=== PATIENT | male | born 1955 | race Two or more races ===

== ENCOUNTER 2022-01-23 08:07 | Inpatient (IN) | payer OTHER ==
[~2022-01-23] VITALS: Ht 177.8 cm; Wt 83.7 kg
[~2022-01-23 08:07] MED LIST: MELO1TAB56 PO
[2022-01-23] MEDS ORDERED: GABAPENTIN 100 MG CAP PO ONE (08:45)
[2022-01-23] MEDS ORDERED: CELECOXIB 100 MG CAP PO ONE (08:45)
[2022-01-23] MEDS ORDERED: traMADol HCL 50 MG TAB PO ONE (08:45)
[2022-01-23] MEDS: VANCOMYCIN HCL 1000 MG VL ONE ×2 (09:31→13:30)
[2022-01-23] MEDS: THROMBIN (BOVINE) 5000 UNIT SOL VIAL ONE ×2 (09:32→10:28)
[2022-01-23] MEDS: BUPIVACAINE W/ EPINEPH 0.5% INJ 50ML MDV IJ ONE ×2 (09:32→13:20)
[2022-01-23] MEDS ORDERED: MINERAL OIL TOPICAL 10ml TOP ONE (09:32)
[2022-01-23] MEDS ORDERED: ceFAZolin 1GM/50ML 100 ML IV ONE (09:45)
[2022-01-23] MEDS ORDERED: fentaNYL CITRATE 100 MCG/2 ML VL ONE (09:53)
[2022-01-23] MEDS ORDERED: HYDROmorphone HCL 2 MG/ML VL/or syr ONE ×2 (09:53→14:10)
[2022-01-23] MEDS: ceFAZolin 1GM/50ML 50 ML IV SCH ×3 (09:53→22:11)
[2022-01-23] MEDS ORDERED: fentaNYL CITRATE 10 ML ONE (09:54)
[2022-01-23] MEDS ORDERED: MIDAZOLAM HCL 2MG/2ML 2ml VIAL (1mg/ml) ONE (09:54)
[2022-01-23] MEDS ORDERED: DexAMETHasone SOD PHOS 10MG/1ML VIAL INJ ONE (09:57)
[2022-01-23] MEDS ORDERED: MIDAZOLAM HCL 2MG/2ML 2ml VIAL (1mg/ml) IV PRN (10:30)
[2022-01-23] MEDS ORDERED: fentaNYL CITRATE 100 MCG/2 ML VL IV PRN (10:30)
[2022-01-23] MEDS ORDERED: ONDANSETRON HCL 4 MG/2 ML VIAL IV PRN ×3 (10:30→14:30)
[2022-01-23] MEDS ORDERED: MORPHINE SULFATE 4 MG/ML SYR/VIAL IV PRN ×2 (10:30→14:30)
[2022-01-23] MEDS ORDERED: ePHEDrine SULFATE 50 MG/ML AMP IV PRN (10:30)
[2022-01-23] MEDS ORDERED: hydrALAZINE HCL 20 MG/ML VL IV PRN (10:30)
[2022-01-23] MEDS ORDERED: LABETALOL HCL 5 MG/ML 4ML SYRINGE IV PRN (10:30)
[2022-01-23] MEDS ORDERED: TRANEXAMIC ACID 10 ML ONE (11:16)
[2022-01-23] MEDS ORDERED: PROPOFOL 10 MG/ML 20 ML IV ONE (12:13)
[2022-01-23] MEDS ORDERED: ROCURONIUM 10MG/ML 10ML VIAL IV ONE (12:51)
[2022-01-23] MEDS ORDERED: SUGAMMADEX 200mg/2ml Vial (100MG/ML) IV ONE (13:02)
[2022-01-23] MEDS ORDERED: NITROGLYCERIN 0.4 MG SL TAB SL PRN ×2 (14:00)
[2022-01-23] MEDS: LACTATED RINGER'S 1,000 ML IV SCH (14:00)
[2022-01-23] MEDS ORDERED: HYDROmorphone HCL 2 MG/ML VL/or syr IV PRN (14:00)
[2022-01-23] MEDS ORDERED: oxyCODONE HCL 5MG TAB PO PRN (14:00)
[2022-01-23] MEDS ORDERED: MORPHINE SULFATE INJ 2 MG/ml SYRG IV PRN ×3 (14:00→14:30)
[2022-01-23] MEDS ORDERED: OXYCODONE W/ ACETAMINOPHEN 5/325MG TABLET PO PRN (14:00)
[2022-01-23] MEDS: HYDROmorphone HCL 2 MG/ML VL/or syr IV PRN ×2 (14:12→14:22)
[2022-01-23] MEDS ORDERED: HYDROcodone-ACET 5/325MG TAB PO PRN (14:30)
[2022-01-23] MEDS ORDERED: ACETAMINOPHEN 325 MG TAB PO PRN (14:30)
[2022-01-23] MEDS ORDERED: LACTULOSE 20Gm/30ML SOLN PO PRN (14:30)
[2022-01-23] MEDS ORDERED: diphenhdrAMINE HCL 50 MG/1 ML VL IM ONE (14:30)
[2022-01-23] MEDS ORDERED: diphenhdrAMINE HCL 50 MG/1 ML VL IV ONE (14:30)
[2022-01-23] MEDS ORDERED: diphenhdrAMINE HCL 50 MG/1 ML VL ONE (14:34)
[2022-01-23 22:00] VITALS: BP 127/82
[2022-01-23] MEDS: DOCUSATE SOD 100 MG CAP PO SCH (22:12)
[2022-01-23] MEDS: SENNA 8.6 MG TAB PO SCH (22:12)
[2022-01-24] MEDS: LACTATED RINGER'S 1,000 ML IV SCH (00:43)
[2022-01-24 05:00] VITALS: BP 124/70
[2022-01-24] MEDS: ceFAZolin 1GM/50ML 50 ML IV SCH (05:27)
[2022-01-24 06:16] LABS: Basophils # (auto) 0 10 ^3/uL (0-0.2); Basophils % (auto) 0.3 % (0.0-2.0); Eosinophils # (auto) 0 10 ^3/uL (0-0.8); Eosinophils % (auto) 0.1 % (0.0-7.0); Hemoglobin 12.3 g/dL (13.5-17.5); Lymphocytes # (auto) 0.9 10 ^3/uL (0.4-5.4); Lymphocytes % (auto) 13.2 % (10.0-50.0); Mean Corpuscular Hemoglobin 32.5 pg (28.0-32.0); Mean Corpuscular Hgb Conc. 34.3 g/dL (32.0-36.0); Mean Corpuscular Volume 94.9 fL (80.0-100.0); Monocytes # (auto) 0.5 10 ^3/uL (0-1.3); Monocytes % (auto) 7.8 % (0.0-12.0); Neutrophils # (auto) 5.5 10 ^3/uL (1.6-8.6); Neutrophils % (auto) 78.6 % (37.0-80.0); Red Blood Cells 3.79 10^6/uL (4.5-5.90); Red Cell Distribution Width 12.5 % (11.8-14.3)
[2022-01-24 06:31] LABS: INR 1.03 (0.9-1.15)
[2022-01-24 06:34] LABS: BUN/Creatinine Ratio 19.4; Calcium 8.4 mg/dL (8.5-10.1); Potassium 4.2 mmol/L (3.5-5.1)
[2022-01-24 08:38] VITALS: BP 134/71
[2022-01-24] MEDS: DOCUSATE SOD 100 MG CAP PO SCH (08:49)
[2022-01-24] MEDS: SENNA 8.6 MG TAB PO SCH (08:49)
[2022-01-24] MEDS ORDERED: POLYETHYLENE GLYCOL 17 GM PWDR PO SCH (10:00)
[2022-01-24] MEDS ORDERED: FAMOTIDINE 20 MG TAB PO SCH (10:00)
[2022-01-24 13:00] VITALS: BP 111/79
[2022-01-24] MEDS ORDERED: HEPARIN SODIUM (PORCINE) 5000 UNITS/ML 1ML VIAL SC SCH (14:00)
== END 2022-01-24 16:05 | disposition home or self-care (01) | DRG 455 ==
LOC: SUR 08:07 → OVERFLOW 14:00 → WEST WING 16:45
PROVIDERS: ADMIT Physician Assistant; ATTEND Internal Medicine
PROC: 0SG00JJ Fusion of Lumbar Vertebral Joint with Synthetic Substitute, Posterior Approach, Anterior Column, Open Approach (ICD-10-PCS; 2022-01-23)
PROC: 01NB0ZZ Release Lumbar Nerve, Open Approach (ICD-10-PCS; 2022-01-23)
PROC: 4A11X4G Monitoring of Peripheral Nervous Electrical Activity, Intraoperative, External Approach (ICD-10-PCS; 2022-01-23)
PROC: 0SG0071 Fusion of Lumbar Vertebral Joint with Autologous Tissue Substitute, Posterior Approach, Posterior Column, Open Approach (ICD-10-PCS; principal; 2022-01-23 09:56)
DX: M48.062 Spinal stenosis, lumbar region with neurogenic claudication (principal); Z20.822 Contact with and (suspected) exposure to COVID-19
CPT/HCPCS: 36415; 72100; 76000; 80048; 85025; 85610; 86850; 86900; 86901; 97163; G0378; J0690; J1100; J2250; J2704

== ENCOUNTER 2023-09-21 07:36 | Inpatient (IN) | payer OTHER ==
[~2023-09-21] VITALS: Ht 177.8 cm; Wt 84.2 kg
[2023-09-21] VITALS (13 sets, daily range): BP systolic 106–134; BP diastolic 67–87; PULSE 69–91; RESP 14–20; TEMP 97.9; O2SAT 92–100
[~2023-09-21 07:36] MED LIST changes: -MELO1TAB56 PO; +NAPR-746 PO
[2023-09-21] MEDS ORDERED: CELECOXIB 100 MG CAP PO ONE (09:00)
[2023-09-21] MEDS ORDERED: ACETAMINOPHEN IV 1000 MG/100ML (10MG/ML) IV ONE (09:00)
[2023-09-21] MEDS ORDERED: PREGABALIN CAPSULE 75 MG CAP PO ONE (09:00)
[2023-09-21] MEDS ORDERED: CELECOXIB 100 MG CAP ONE (09:20)
[2023-09-21] MEDS ORDERED: PREGABALIN CAPSULE 75 MG CAP ONE (09:21)
[2023-09-21] MEDS ORDERED: ceFAZolin 2 GM/D5W100ml 100 ML IV ONE (09:21)
[2023-09-21] MEDS ORDERED: ACETAMINOPHEN IV 100 ML IV ONE (09:26)
[2023-09-21] MEDS ORDERED: TRANEXAMIC ACID 20 ML ONE (10:16)
[2023-09-21] MEDS ORDERED: BUPIVACAINE 0.25% INJ 50ML VIAL ONE (10:16)
[2023-09-21] MEDS ORDERED: KETOROLAC TROMETH 30 MG/ML 1ML VIAL ONE (10:18)
[2023-09-21] MEDS ORDERED: VANCOMYCIN HCL 1000 MG VL ONE (10:18)
[2023-09-21] MEDS ORDERED: TETRACAINE 1% INJ 2 ML VIAL IJ ONE (10:30)
[2023-09-21] MEDS ORDERED: fentaNYL CITRATE 100 MCG/2 ML VL ONE (10:33)
[2023-09-21] MEDS ORDERED: MIDAZOLAM HCL 2MG/2ML 2ml VIAL (1mg/ml) ONE (10:33)
[2023-09-21] MEDS ORDERED: DexAMETHasone SOD PHOS 10MG/1ML VIAL INJ ONE (10:34)
[2023-09-21] MEDS ORDERED: PROPOFOL 10 MG/ML 20 ML IV ONE (10:34)
[2023-09-21] MEDS ORDERED: MORPHINE SULF PF 5 MG/10 ML VIAL ONE (10:35)
[2023-09-21] MEDS ORDERED: DexAMETHasone SOD PHOS 4 MG/1ML SDV INJ ONE (10:52)
[2023-09-21] MEDS ORDERED: SODIUM CHLORIDE LOCK 10 ML ONE (10:53)
[2023-09-21] MEDS ORDERED: HYDROmorphone HCL 2 MG/ML VL/or syr IV PRN ×2 (11:15→11:30)
[2023-09-21] MEDS ORDERED: DexAMETHasone SOD PHOS 10MG/1ML VIAL INJ IV PRN (11:15)
[2023-09-21] MEDS ORDERED: diphenhdrAMINE HCL 50 MG/1 ML VL IV PRN (11:15)
[2023-09-21] MEDS ORDERED: NALOXONE HCL 0.4 MG/ML VIAL IV PRN (11:15)
[2023-09-21] MEDS ORDERED: LABETALOL HCL 5 MG/ML 4ML SYRINGE IV PRN (11:15)
[2023-09-21] MEDS ORDERED: ePHEDrine SULFATE 50 MG/ML AMP IV PRN (11:15)
[2023-09-21] MEDS ORDERED: MIDAZOLAM HCL 2MG/2ML 2ml VIAL (1mg/ml) IV PRN (11:15)
[2023-09-21] MEDS ORDERED: ONDANSETRON HCL 4 MG/2 ML VIAL IV PRN (11:15)
[2023-09-21] MEDS ORDERED: ceFAZolin 1GM/50ML 50 ML IV SCH (11:30)
[2023-09-21] MEDS ORDERED: MORPHINE SULFATE INJ 2 MG/ml SYRG IV PRN (11:30)
[2023-09-21] MEDS ORDERED: NITROGLYCERIN 0.4 MG SL TAB SL PRN (11:30)
[2023-09-21] MEDS: SODIUM CHLOR 0.9% PF (SALINE LOCK) 10ML VIAL/SYR IV SCH ×2 (14:00→21:39)
[2023-09-21] MEDS: LACTATED RINGER'S 1,000 ML IV SCH ×2 (15:40→21:30)
[2023-09-21] MEDS: ceFAZolin 1GM/50ML 50 ML IV SCH ×2 (17:00→21:39)
[2023-09-22] VITALS (23 sets, daily range): BP systolic 92–137; BP diastolic 62–90; PULSE 61–97; RESP 16–24; TEMP 97.3–99.7; O2SAT 91–97
[2023-09-22] MEDS: ceFAZolin 1GM/50ML 50 ML IV SCH (03:40)
[2023-09-22] MEDS: SODIUM CHLOR 0.9% PF (SALINE LOCK) 10ML VIAL/SYR IV SCH ×3 (05:01→22:13)
[2023-09-22 06:14] LABS: Basophils # (auto) 0 10 ^3/uL (0-0.2); Eosinophils # (auto) 0 10 ^3/uL (0-0.8); Hematocrit 38.6 % (41.0-53.0); Hemoglobin 12.9 g/dL (13.5-17.5); Lymphocytes # (auto) 0.5 10 ^3/uL (0.4-5.4); Lymphocytes % (auto) 5.5 % (10.0-50.0); Mean Corpuscular Hemoglobin 32.3 pg (28.0-32.0); Mean Corpuscular Hgb Conc. 33.4 g/dL (32.0-36.0); Mean Corpuscular Volume 96.9 fL (80.0-100.0); Monocytes # (auto) 0.7 10 ^3/uL (0-1.3); Monocytes % (auto) 7.5 % (0.0-12.0); Neutrophils # (auto) 7.5 10 ^3/uL (1.6-8.6); Red Blood Cells 3.98 10^6/uL (4.5-5.90); White Blood Cell 8.7 10^3/uL (4.4-10.8)
[2023-09-22] MEDS: LACTATED RINGER'S 1,000 ML IV SCH ×2 (06:24→16:37)
[2023-09-22 06:30] LABS: Calcium 8.8 mg/dL (8.5-10.1); Chloride 105 mmol/L (98-107); Potassium 4.7 mmol/L (3.5-5.1); Sodium 136 mmol/L (136-145)
[2023-09-22 06:31] LABS: Anion Gap 5 (5-15); Carbon Dioxide 26 mmol/L (20-30)
[2023-09-22 06:36] LABS: BUN/Creatinine Ratio 17.3 (10.0-20.0); Blood Urea Nitrogen 14 mg/dL (9-23); Glucose 122 mg/dL (74-106)
[2023-09-22] MEDS: ENOXAPARIN SOD 40 MG/0.4 ML SYRINGE SC SCH (08:40)
[2023-09-22] MEDS: ACETAMINOPHEN 325 MG TAB PO PRN (15:13)
[2023-09-22] MEDS: chlordiazePOXIDE HCL 5 MG CAP PO PRN (15:44)
[2023-09-22] MEDS: OXYCODONE W/ ACETAMINOPHEN 5/325MG TABLET PO PRN (18:15)
[2023-09-23] MEDS: OXYCODONE W/ ACETAMINOPHEN 5/325MG TABLET PO PRN ×4 (01:07→14:26)
[2023-09-23] MEDS: LACTATED RINGER'S 1,000 ML IV SCH ×2 (03:30→13:30)
[2023-09-23 05:00] VITALS: BP 114/87; PULSE 78; RESP 18; TEMP 98.1; O2SAT 96
[2023-09-23 08:00] VITALS: PULSE 78; RESP 20; O2SAT 94
[2023-09-23] MEDS: ENOXAPARIN SOD 40 MG/0.4 ML SYRINGE SC SCH (08:52)
[2023-09-23] MEDS: ACETAMINOPHEN 325 MG TAB PO PRN (09:05)
[2023-09-23] MEDS: chlordiazePOXIDE HCL 5 MG CAP PO PRN (10:35)
[2023-09-23 13:00] VITALS: BP 128/81; PULSE 82; RESP 18; TEMP 98.3; O2SAT 95
[2023-09-23 15:23] VITALS: BP 128/81; PULSE 82; RESP 18; TEMP 36.8; O2SAT 95
[2023-09-23 17:19] VITALS: BP 99/64; PULSE 81; RESP 17; TEMP 98.8; O2SAT 89
== END 2023-09-23 16:15 | disposition home health service (06) | DRG 470 ==
LOC: SUR 07:36 → OVERFLOW 11:33 → TELE-EAST 16:09
PROVIDERS: ADMIT Orthopaedic Surgery Adult Reconstructive Orthopaedic Surgery; ATTEND Orthopaedic Surgery Adult Reconstructive Orthopaedic Surgery
PROC: 0SRD0J9 Replacement of Left Knee Joint with Synthetic Substitute, Cemented, Open Approach (ICD-10-PCS; principal; 2023-09-21 10:44)
DX: M17.12 Unilateral primary osteoarthritis, left knee (principal); Z83.3 Family history of diabetes mellitus; Z82.49 Family history of ischemic heart disease and other diseases of the circulatory system
CPT/HCPCS: 36415; 73562; 80048; 85025; 86850; 86900; 86901; 97110; 97116; 97163; 97530; G0378; J0131; J1100; J1885; J2250; J2704; J3490

== ENCOUNTER 2024-10-07 21:31 | Emergency (ER) | payer OTHER ==
[~2024-10-07] VITALS: Ht 177.8 cm
--- NOTE | 2024-10-07 21:47 | ED.PDOC ---
Altered Mental Status HPI Comments 69 y.o male presents to the ED via EMS s/p syncopal episode earlier today at home. EMS reports patient was watching TV on his couch, began feeling dizzy and states he saw white spots. Patient reports he got himself up to go sleep and as he ambulating, he leaned against the kitchen counter and lost consciousness. Wi fe was able to catch him and assist him to the floor and no head injury was reported. Per , patient has a history of anxiety and states he was anxious today as he decided to get a second knee surgery. Patient also mentions taking an edible, usually takes them for anxiety but this time did not realize he had double doze equally 100mg. He denies any chest pain, SOB, nausea, vomiting, diarrhea, fever, or chills. Patient was tearful and stated he believes the event is completely related to anxiety issues. Vital signs were stable on arrival. Chief Complaint: Syncope Time Seen by MD: 21:33 Reviewed Notes: Nurses Notes, Academic Director Notes, Medications, Allergies Allergies: Coded Allergies: NO KNOWN ALLERGIES (Unverified , 01/21/22) Home Meds No Active Prescriptions or Reported Meds Information Source: Patient, Emergency Med Personnel Mode of Arrival: EMS Severity: Moderate Timing: Hours Duration: Since onset Prehospital treatment: 12 Lead EKG, Rags Laborer Quality: Decreased Alertness Recent: None History of: None Past Medical History PAST MEDICAL HISTORY: Anxiety, Cancer Surgical History: Denies all surgeries Surgical History (Other): Knee Family History Family History: Reviewed,noncontributory to illness, No family hx of Cancer, No family hx of DM, No family hx of Heart dee, No family hx of HTN, No family hx ofKidney dee, No family hx of Liver dee, No family hx of Lung dee, No family hx of Stroke Social History Smoker: Non-Smoker Alcohol: Denies ETOH Use Drugs: Denies Drug Use Lives In: Home Constitutional: denies: chills, diaphoresis, fatigue, fever, malaise, sweats, weakness, others EENTM: denies: blurred vision, double vision, ear bleeding, ear discharge, ear drainage, ear pain, ear ringing, eye pain, eye redness, hearing loss, mouth pain, mouth swelling, nasal discharge, nose bleeding, nose congestion, nose pain, photophobia, tearing, throat pain, throat swelling, voice changes, others Respiratory: denies: cough, hemoptysis, orthopnea, SOB at rest, shortness of breath, SOB with excertion, stridor, wheezing, others Cardiovascular: reports: syncope; denies: chest pain, dizzy spells, diaphoresis, Dyspnea on exertion, edema, irregular heart beat, left arm pain, lightheadedness, palpitations, PND, others Gastrointestinal: denies: abdomen distended, abdominal pain, blood streaked bowels, constipated, diarrhea, dysphagia, difficulty swallowing, hematemesis, melena, nausea, poor appetite, poor fluid intake, rectal bleeding, rectal pain, vomiting, others Genitourinary: denies: burning, dysuria, flank pain, frequency, hematuria, incontinence, penile discharge, penile sore, pain, testicle pain, testicle sw elling, urgency, others Neurological: denies: dizziness, fainting, headache, left sided numbness, left sided weakness, numbness, paresthesia, pre-existing deficit, right sided numbness, right sided weakness, seizure, speech problems, tingling, tremors, weakness, others Musculoskeletal: denies: back pain, gout, joint pain, joint swelling, muscle pain, muscle stiffness, neck pain, others Integumetry: denies: bruises, change in color, change in hair/nails, dryness, laceration, lesions, lumps, rash, wounds, others Allergic/Immunocompromised: denies: Difficulty Healing, Frequent Infections, Hives, Itching, others Hematologic/Lymphatic: denies: anemia, blood clots, easy bleeding, easy bruising, swollen glands, others Endocrine: denies: excessive hunger, excessive sweating, excessive thirst, excessive urination, flushing, intolerance to cold, intolerance to heat, unexplained weight gain, unexplained weight loss, others Psychiatric: reports: anxiety; denies: bipolar disorder, depression, hopeless, panic disorder, schizophrenia, sleepless, suicidal, others All Other Systems: Reviewed and Negative Physical Exam General Appearance: Moderate Distress (anxious appearing . Patient was tearful at time of evaluation due to anxiety concerns.), Normal HEENT: Normal ENT Inspection, Pharynx Normal, TMs Normal Neck: Full Range of Motion, Non-Tender, Normal, Normal Inspection Respiratory: Chest Non-Tender, Lungs Clear, No Accessory Muscle Use, No Respiratory Distress, Normal Breath Sounds Cardiovascular: No Edema, No JVD, No Murmur, No Gallop, Normal Peripheral Pulses, Regular Rate/Rhythm Breast Exam: Deferred Gastrointestinal: No Organomegaly, Non Tender, No Pulsatile Mass, Normal Bowel Sounds, Soft Genitalia: Deferred Pelvic: Deferred Rectal: Deferred Extremities: No calf tenderness, Normal capillary refill, Normal inspection, Normal range of motion, Non-tender, No pedal edema Musculoskeletal : Apperance: Normal Neurologic: Alert, No Motor Deficits, No Sensory Deficits, Other (Tearful anxiety) Cerebellar Function: Normal Reflexes: Normal Skin: Dry, Normal Color, Warm Lymphatic: No Adenopathy Was a procedure done? Was a procedure done?: No Differential Diagnosis (ALOC) Differential Diagnosis: Dehydration, Other (Sepsis, electrolyte abnormality, acute coronary syndrome, anxiety, vasovagal) Other Differential Diagnosis Anxiety X-Ray, Labs, Meds, VS Vital Signs Date Time Temp Pulse Resp B/P (MAP) Pulse Ox O2 Delivery O2 Flow Rate FiO2 10/07/24 22:44 98.5 69 17 125/51 (75) 95 98.5 10/07/24 22:44 69 17 95 Room Air 10/07/24 21:36 82 10/07/24 21:31 98.3 74 17 123/76 (92) 98 Lab Test 10/07/24 21:46 Range/Units White Blood Count 7.1 4.4-10.8 10^3/uL Red Blood Count 4.57 4.5-5.90 10^6/uL Hemoglobin 14.6 13.5-17.5 g/dL Hematocrit 43.5 41.0-53.0 % Mean Corpuscular Volume 95.3 80.0-100.0 fL Mean Corpuscular Hemoglobin 32.0 28.0-32.0 pg Mean Corpuscular Hemoglobin Concent 33.6 32.0-36.0 g/dL Red Cell Distribution Width 12.7 11.8-14.3 % Platelet Count 202 140-450 10^3/uL Mean Platelet Volume 7.9 6.9-10.8 fL Neutrophils (%) (Auto) 75.8 37.0-80.0 % Lymphocytes (%) (Auto) 11.9 10.0-50.0 % Monocytes (%) (Auto) 10.7 0.0-12.0 % Eosinophils (%) (Auto) 1.2 0.0-7.0 % Basophils (%) (Auto) 0.4 0.0-2.0 % Neutrophils # (Auto) 5.4 1.6-8.6 10 ^3/uL Lymphocytes # (Auto) 0.8 0.4-5.4 10 ^3/uL Monocytes # (Auto) 0.8 0-1.3 10 ^3/uL Eosinophils # (Auto) 0.1 0-0.8 10 ^3/uL Basophils # (Auto) 0 0-0.2 10 ^3/uL Nucleated Red Blood Cells 0.1 % Sodium Level 137 136-145 mmol/L Potassium Level 4.7 3.5-5.1 mmol/L Chloride Level 103 98-107 mmol/L Carbon Dioxide Level 27 20-31 mmol/L Anion Gap 7 5-15 Blood Urea Nitrogen 26 H 9-23 mg/dL Creatinine 1.30 0.700-1.30 mg/dL Glomerular Filtration Rate Calc 60 >90 mL/min BUN/Creatinine Ratio 20.0 10.0-20.0 Serum Glucose 108 H 74-106 mg/dL Calcium Level 9.1 8.7-10.4 mg/dL Troponin I High Sensitivity 8 </=54 ng/L X-Ray, Labs, Meds, VS Comment All studies performed the ED were evaluated by me personally. Laboratories studies were unremarkable for any systemic concerns. EKG showed a sinus rhythm with a rate of 82. DE interval of 151 and QT interval of 383. Normal EKG. Patient responded well to medication dispensed. Patient states he does not usually take medication for anxiety. Advised patient that he should talk to his primary care provider for information related to medication management of what appears to be significant anxiety concerns. Patient rosebud with a short course of Xanax to aid him while waiting to consult his doctor. Time of 1ST Reevaluation: 22:58 Reevaluation 1ST: Improved Consultation: PCP, Psychiatry Patient Education/Counseling: Diagnosis, Treatment, Prognosis Family Education/Counseling: Diagnosis, Treatment, No Family Present Departure 1 Departure Time of Disposition: 22:58 Impression: Primary Impression: Anxiety Additional Impression: Fainting spell Disposition: 01 HOME / SELF CARE / HOMELESS Condition: Stable Additional Instructions: Advise utilizing medication as needed and additionally, patient should follow up with his primary care provider for discussions related to medication assistance with his significant anxiety concerns. e-Prescriptions Alprazolam (Xanax) 0.5 Mg Tb 1 TAB PO TID, #15 TAB Prov: ABUNDIO RODRIGUEZ PAC 10/07/24 Discharged With: Self, Spouse Critical Care Note Critical Care Time?: No Stability Stability form required: No I personally scribed for ABUNDIO RODRIGUEZ PAC ([email or web address]) on 10/07/24 at 21:47. Elect ronically submitted by Radha Yoon ([facility]). ABUNDIO RODRIGUEZ PAC Oct 07, 2024 21:47
[2024-10-07 22:16] LABS: Basophils # (auto) 0 10 ^3/uL (0-0.2); Basophils % (auto) 0.4 % (0.0-2.0); Eosinophils # (auto) 0.1 10 ^3/uL (0-0.8); Eosinophils % (auto) 1.2 % (0.0-7.0); Hematocrit 43.5 % (41.0-53.0); Hemoglobin 14.6 g/dL (13.5-17.5); Lymphocytes # (auto) 0.8 10 ^3/uL (0.4-5.4); Lymphocytes % (auto) 11.9 % (10.0-50.0); Mean Corpuscular Hgb Conc. 33.6 g/dL (32.0-36.0); Mean Corpuscular Volume 95.3 fL (80.0-100.0); Monocytes # (auto) 0.8 10 ^3/uL (0-1.3); Monocytes % (auto) 10.7 % (0.0-12.0); Neutrophils # (auto) 5.4 10 ^3/uL (1.6-8.6); Neutrophils % (auto) 75.8 % (37.0-80.0); Nucleated Red Blood Cells % 0.1 %; Platelet Count (auto) 202 10^3/uL (140-450); Red Blood Cells 4.57 10^6/uL (4.5-5.90); Red Cell Distribution Width 12.7 % (11.8-14.3); White Blood Cell 7.1 10^3/uL (4.4-10.8)
[2024-10-07 22:17] LABS: Chloride 103 mmol/L (98-107); Potassium 4.7 mmol/L (3.5-5.1); Sodium 137 mmol/L (136-145)
[2024-10-07 22:18] LABS: Anion Gap 7 (5-15); Carbon Dioxide 27 mmol/L (20-31)
[2024-10-07 22:19] LABS: Calcium 9.1 mg/dL (8.7-10.4)
[2024-10-07 22:24] LABS: Blood Urea Nitrogen 26 mg/dL (9-23); Glucose 108 mg/dL (74-106)
--- NOTE | 2024-10-07 22:26 | ECG ---
[facility] Test Date: 2024-10-07 Test Time: 21:36:24 Pat Name: DAT GIFFORD Department: ER Room: Gender: M [address] Clerk: PORTIA : [id number] Requested By: ABUNDIO RODRIGUEZ Order Number: [id number] Reading MD: Measurements Intervals [place] Rate: 82 P: 45 AL: 151 QRS: 18 QRSD: 100 T: 16 QT: 383 QTc: 448 Interpretive Statements Sinus rhythm Please click the below link to view image of tracing.
[2024-10-07 22:44] VITALS: BP 125/51; PULSE 69; RESP 17; TEMP 98.5; O2SAT 95
[2024-10-07] MEDS: ALPRAZolam 0.5 MG TAB PO ONE (22:48)
[2024-10-07] MEDS ORDERED: ALPR0.5T PO (22:59)
== END 2024-10-07 23:44 | disposition home or self-care (01) ==
LOC: ER 21:31 → EDUNIT# 21:31 → EDBD 21:31 → ER 22:40
DX: F41.9 Anxiety disorder, unspecified (principal); R55 Syncope and collapse
CPT/HCPCS: 36415; 80048; 84484; 85025; 93005

== ENCOUNTER 2024-11-21 07:27 | Inpatient (IN) | payer OTHER ==
[~2024-11-21] VITALS: Ht 177.8 cm; Wt 85.0 kg
[~2024-11-21 07:27] MED LIST changes: +ALPR0.5T PO; +NAP500T PO; -NAPR-746 PO; +SILD50TA PO
[2024-11-21] MEDS ORDERED: KETAMINE 50mg/ML 1ml syringe ONE (07:56)
[2024-11-21] MEDS ORDERED: ONDANSETRON HCL 4 MG/2 ML VIAL ONE (07:56)
[2024-11-21] MEDS ORDERED: MIDAZOLAM HCL 2MG/2ML 2ml VIAL (1mg/ml) ONE (07:56)
[2024-11-21] MEDS ORDERED: PROPOFOL 10 MG/ML 20 ML IV ONE (07:56)
[2024-11-21] MEDS ORDERED: GLYCOPYRROLATE 0.2 MG/ML 1ML VIAL ONE (07:56)
[2024-11-21] MEDS ORDERED: fentaNYL CITRATE 100 MCG/2 ML VL ONE ×2 (07:56→09:24)
[2024-11-21] MEDS ORDERED: MORPHINE SULF PF 5 MG/10 ML VIAL ONE (08:38)
[2024-11-21] MEDS ORDERED: HYDROmorphone HCL 2 MG/ML VL/or syr ONE (08:43)
[2024-11-21] MEDS ORDERED: KETOROLAC TROMETH 30 MG/ML 1ML VIAL ONE (08:43)
[2024-11-21] MEDS ORDERED: LIDOCAINE 2% (LOCAL ANESTH.) PF 5ml SDV ONE (08:43)
[2024-11-21] MEDS ORDERED: DexAMETHasone SOD PHOS 10MG/1ML VIAL INJ ONE (08:43)
[2024-11-21] MEDS: PREGABALIN CAPSULE 75 MG CAP PO ONE (09:44)
[2024-11-21] MEDS: CELECOXIB 100 MG CAP PO ONE (09:44)
[2024-11-21] MEDS: ACETAMINOPHEN 500 MG TAB or CAP PO ONE (09:44)
[2024-11-21] MEDS: TRANEXAMIC ACID 20 ML ONE (09:50)
[2024-11-21] MEDS: ceFAZolin 2 GM/D5W100ml 100 ML IV ONE (09:50)
[2024-11-21] MEDS: CEFEPIME 1GM/ 50ML 50 ML IV ONE (10:00)
[2024-11-21] MEDS ORDERED: NITROGLYCERIN 0.4 MG SL TAB SL PRN (10:15)
[2024-11-21] MEDS: LACTATED RINGER'S 1,000 ML IV SCH (10:15)
[2024-11-21] MEDS ORDERED: ceFAZolin 1GM/50ML 50 ML IV SCH (10:15)
[2024-11-21] MEDS ORDERED: MORPHINE SULFATE INJ 2 MG/ml SYRG IV PRN (10:15)
[2024-11-21] MEDS ORDERED: OXYCODONE W/ ACETAMINOPHEN 5/325MG TABLET PO PRN (10:15)
[2024-11-21] MEDS: KETOROLAC TROMETH 30 MG/ML 1ML VIAL ONE (10:38)
[2024-11-21] MEDS: MORPHINE SULF PF 5 MG/10 ML VIAL ONE (10:38)
[2024-11-21] MEDS: BUPIVACAINE 0.25% INJ 50ML VIAL ONE (10:38)
[2024-11-21] MEDS: VANCOMYCIN HCL 1000 MG VL ONE (11:00)
[2024-11-21 11:19] VITALS: O2SAT 100
[2024-11-21] MEDS ORDERED: HYDROmorphone HCL 2 MG/ML VL/or syr IV PRN (11:30)
[2024-11-21] MEDS: ONDANSETRON HCL 4 MG/2 ML VIAL IV ONE (11:30)
--- NOTE | 2024-11-21 13:27 | DVH ---
CLINICAL INDICATION: pain S/P SURGERY TECHNIQUE: 3 radiographic views of the right knee were obtained. Comparison: XY L KNEE 3V XRAY on DOS: 09/21/23 FINDINGS/IMPRESSION: Postsurgical changes from right knee arthroplasty.
[2024-11-21] MEDS: ALPRAZolam 0.5 MG TAB PO SCH (14:00)
[2024-11-21] MEDS: SODIUM CHLOR 0.9% PF (SALINE LOCK) 10ML VIAL/SYR IV SCH (14:00)
[2024-11-21] MEDS: ROPIVACAINE 0.5% (5MG/ML) 20ML AMPULE IJ ONE (14:29)
[2024-11-21] MEDS: PREGABALIN CAPSULE 75 MG CAP ONE (14:29)
[2024-11-21] MEDS: ceFAZolin 1GM/50ML 50 ML IV SCH (16:40)
--- NOTE | 2024-11-21 16:41 | DVHINCON2 ---
Date Seen: Nov 21, 2024 Referring Physician Orthopedic surgery. Reason for Consultation Medical management. History of Present Illness 69-year-old male with a known history anxiety disorder, chronic pain syndrome presented to the hospital with right knee degenerative joint disease. Patient is status post right total knee arthroplasty. Patient currently denies any chest pain shortness of breath denies any fevers chills cough or phlegm. Past Medical History Anxiety disorder. Past Surgical History Right total knee with previous history of left total knee. Family History: Arthritis G8 MOTHER Diabetes mellitus G8 MOTHER FH: prostate cancer G8 FATHER Gout G8 MOTHER Allergies: Coded Allergies: NO KNOWN ALLERGIES (Unverified , 01/21/22) Home Meds Active Scripts Alprazolam (Xanax) 0.5 Mg Tb, 1 TAB PO TID, #15 TAB Prov:ABUNDIO RODRIGUEZ PAC 10/07/24 Reported Medications Sildenafil Citrate (Viagra) Unknown Strength Tab, PO DAILY, #6 TAB 5 Refills 11/18/24 Naproxen (NAPROSYN TABLET) Unknown Strength Tb, PO DAILY, #60 TAB 1 Refill 11/18/24 Current Medications Current Medications Medications (Trade) Dose Ordered Sig/Joellen Route PRN Reason Start Time Stop Time Status Last Admin Alprazolam (Xanax Tablet) 0.5 mg TID PO 11/21/24 14:00 Lactated Ringer's 1,000 ml @ 100 mls/hr Q10H IV 11/21/24 10:15 Sodium Chloride (Saline Lock Ns) 10 ml Q8HR IV 11/21/24 14:00 Cefazolin Sodium 50 ml @ 50 mls/hr Q6H IV 11/21/24 10:15 11/21/24 14:32 DC Oxycodone/ Acetaminophen (Percocet 5/ 325MG Tablet) 1 tab Q4HP PRN PO MODERATE PAIN 11/21/24 10:15 Hydromorphone HCl (Dilaudid Injection) 1 mg Q2HP PRN IV SEVERE PAIN (7-10 PAIN SCALE) 11/21/24 10:15 Oxycodone HCl (OxyCONTIN ER Tablet) 10 mg Q12HR PO 11/21/24 22:00 Ondansetron HCl (Zofran) 4 mg Q6HP PRN IV NAUSEA / VOMITING 11/21/24 10:15 Docusate Sodium (Colace Capsule) 100 mg Q12HR PO 11/21/24 22:00 Enoxaparin Sodium (Lovenox) 40 mg DAILY SC 11/22/24 10:00 Nitroglycerin (Ntrostat Sublingual) 0.4 mg Q5MINP PRN SL FOR CHEST PAIN 11/21/24 10:15 Morphine Sulfate 2 mg Q30M PRN IV FOR CHEST PAIN 11/21/24 10:15 Cefepime HCl 50 ml @ 12.5 mls/hr DAILY IV 11/22/24 10:00 Hydromorphone HCl (Dilaudid Injection) 0.5 mg Q10M PRN IV SEVERE PAIN (7-10 PAIN SCALE) 11/21/24 11:30 11/21/24 12:11 DC Cefazolin Sodium 50 ml @ 50 mls/hr Q6H IV 11/21/24 16:00 11/22/24 04:59 Review of Systems Twelve review of system are negative side mentioned above. 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 Anxiety disorder 2. Status post right total knee arthroplasty for degenerative joint-disease Continue pain meds as needed DVT GI prophylaxis-, resume anxiety meds Discharge plan per Orthopedics surgeon. Plan discussed with: Patient Date of Service: Nov 21, 2024 Billing Provider: KJ FOSTER MD Common Visit Codes: NOT BILLABLE KJ FOSTER MD Nov 21, 2024 16:41
[2024-11-21 18:32] VITALS: PULSE 96; RESP 18
[2024-11-21 18:34] VITALS: BP 124/74; PULSE 96; RESP 18; TEMP 98.2; O2SAT 94
[2024-11-21] MEDS: ONDANSETRON HCL 4 MG/2 ML VIAL IV PRN (19:43)
[2024-11-21 20:00] VITALS: PULSE 99; RESP 18; O2SAT 94
[2024-11-21 21:00] VITALS: BP 119/80; PULSE 99; RESP 17; TEMP 98.3; O2SAT 94
[2024-11-21] MEDS: oxyCODONE ER 10 MG TAB PO SCH (21:31)
[2024-11-21] MEDS: DOCUSATE SOD 100 MG CAP PO SCH (21:32)
[2024-11-22 01:00] VITALS: BP 130/74; PULSE 91; RESP 16; TEMP 98; O2SAT 94
[2024-11-22] MEDS: HYDROmorphone HCL 2 MG/ML VL/or syr IV PRN (03:52)
[2024-11-22 05:00] VITALS: BP 106/64; PULSE 76; RESP 16; TEMP 98; O2SAT 94
--- NOTE | 2024-11-22 07:45 | DVHDS2 ---
Discharge Summary Date of Admission Nov 21, 2024 at 10:01 Date of Discharge: Nov 22, 2024 Wounds: 1. You will likely have a gel-type dressing over your wound, you may keep this on for 7-14 days after leaving the hospital until your first post-op visit, unless it becomes soiled or your skin becomes irritated. If a wound vac dressing is placed on your knee this is to be left in place for one week and will be changed as needed. After your remove the dressing or wound vac, the home health nurse may place clean dry dressing over your wound. Keep wound covered, clean and dry for two weeks. 2. Anuel will be removed during your initial post-op visit. If you have concerns about our wound, please call the office immediately. If nervous about staple removal can take pain pill one hour prior to appointment. 3. If there is drainage from your wound, change the dressing daily until it stops. If drainage lasts more than 10 days, call our office. 4. Low grade (up to 100 degrees) fever is common for the first week after surgery. You should take your temperature daily. If you have fevers of 101 or more, please call the office. Brief Hx & Hospital Course: s/p right TKA Condition at Discharge: Good Final Diagnosis/Problems List right knee osteoarthritis Discharge Disposition: Home with Health Services Discharge Instruct/Medications Diet: Regular Diet comment: may advance diet as tolerated, drink plenty of fluids. avoid alcohol while taking narcotics Activity: See Comment Activity comment: 1.You can bear as much weight as you tolerate on your knee unless specifically instructed otherwise. You may use the walking aid which you were discharged with and switch to a cane whenever you feel comfortable doing so. You should use an assistive device until you can walk comfortably without it. Keep in mind that every patient moves at their own speed of recovery so take your time. 2.A physical therapist will visit you at home. 3.Use CPM machine as instructed (6 hours a day) and increase flexion by 5 degrees daily. 4.High impact activity such as jumping, aerobics, tennis, and skiing are not permitted during the first 3 months after surgery. These activities can contribute to accelerated wear and should be done with caution after this time. Discuss this with your surgeon if you have questions. 5.Although a bath or whirlpool is NOT permitted during the first 2-3 weeks, you may shower as soon as you get home from the hospital provided there is no wound drainage. Place a dressing or covering over the wound when you shower. 6.Swimming is not permitted until the wound is healed, which typically occurs approximately 3-4 weeks after surgery. Follow Up/Referral: 1.Driving is not permitted within the first 2 weeks. 2.Your first postoperative visit will take place 2 weeks after discharge. Please call the office once you are home from the hospital to arrange this appointment. 3.Antibiotic preventative treatment is required before dental or other invasive procedures. Please ask your surgeon about this at your first postoperative visit. If you experience chest pain, shortness of breath or severe painful calf swelling, go to the nearest emergency room to be evaluated. Please call our office once your situation is stabilized. Medications: 1.You will be discharged with pain medication, a blood thinner (unless you were previously on a blood thinner prior to surgery) and stool softener. Please follow the instructions regarding these medications as provided by your nurse at the hospital upon discharge. 2.Blood clots in the leg are a known complication of surgery. It is very important that you take the medication to protect against clots. Depending on what you are discharged on typically it is Lovenox 40mg daily for 2 weeks or Aspirin 81mg twice daily for 4 weeks. After you finish this, you should then take baby Aspirin (81mg) once daily for 2 weeks. 3.You should restart all of your prescription medications once discharged from the hospital/surgery center unless specifically instructed otherwise. 4.Herbal supplements may be restarted 2 weeks after surgery. 5.If you have been given Coumadin as a blood thinner, please follow up with your barrel bridge assembler during the first two weeks after surgery to review medications and overall medical well-being. 6.Please note that narcotic pain medication may cause constipation. Please remember to take stool softeners (Colace) when using narcotics to help reduce the change of constipation. You should not use alcohol together with narcotic medication. Discharge Statement: "Patient was advised to return to the ER or call 911 if any headaches, dizziness, shortness of breath, chest pain, abdominal pain, bleeding, fevers, or worsening of medical condition. Patient was counseled about treatment plan, medications, possible side effects, patientverbalized understanding. All questions were answered to the best of my ability. This discharge took greater then 30 minutes in planning, reviewing documentation, counseling the patient, and discussing with other team members." ASSESSMENT ASSESSMENT Assessment SINA WOODS NP Nov 22, 2024 07:45
[2024-11-22 08:00] VITALS: RESP 16
[2024-11-22 09:00] VITALS: BP 133/73; PULSE 74; RESP 16; TEMP 98.4; O2SAT 93
[2024-11-22] MEDS: ENOXAPARIN SOD 40 MG/0.4 ML SYRINGE SC SCH (09:38)
[2024-11-22] MEDS: CEFEPIME 1GM/ 50ML 50 ML IV SCH (09:39)
[2024-11-22 10:27] VITALS: TEMP 36.7
--- NOTE | 2024-11-25 18:17 | DVHOP2 ---
Operative Report - 2 Report Details Date: 11/21/24 Preop Diagnosis: Right knee osteoarthritis Postop Diagnosis: right knee osteoarthritis Surgeon: Burke Soler MD [employer] Lease Pumper: Ludwin CANO Anesthesiologist: Spencer BALBUENA Anesthesia: General, Regional Implant: [employer] Uncemented CR see implant log Consent: The patient was informed of the risks and benefits of the procedure. These include but are not limited to complications of anesthesia, postoperative infection, incomplete relief of symptoms, recurrence of symptoms, damage to blood vessels, nerves and tendons, deep venous thrombosis, pulmonary embolism and possible need for repeat surgery in the future. Estimated Blood Loss: 50 cc Name of Procedure Performed Right total knee arthroplasty using computer navigation Procedure Details Procedure Details: FINDINGS: degenerative disease with grade IV changes with varus deformity INDICATION: This patient has failed non-operative treatments for knee arthritis and is now indicated for a total knee replacement. Preoperatively in the waiting area as well as in the office, I had a long discussion with the patient regarding the plan, the expected outcome, the risks, benefits, and alternatives of surgery. The risks include, but are not limited to, infection (which may require future surgery and removal of implants) , bleeding (which may require a transfusion), damage to nerves, arteries, veins, tendons, muscles and other adjacent structures. Also discussed the possibilities of intraoperative fractures, implant loosening, heterotopic bone formation, and revision for variety of reasons, and medical complications etc. This was discussed at length and consent has been obtained. DESCRIPTION OF PROCEDURE: In the preoperative holding area, the consent was reviewed and the appropriate extremity was verified by the patient and marked with my initials. The patient was then transferred to the operating theatre. Appropriate anesthesia was induced. All bony prominences were well padded. A time out was performed verifying the side and site of surgery according to standard protocol. Preoperative antibiotics were given 10 minutes prior to tourniquet inflation. Tranexamic was given. A well padded thigh tourniquet was applied. The extremity was then prepped and draped in the usual sterile fashion. The extremity was exsanguinated and the tourniquet was inflated. We then made a mid-line incision, which we continued to the underlying capsular tissue. We performed a medial parapatellar arthrotomy. We periosteally exposed the proximal tibia, excised the anterior fat pad and synovium from the distal aspect of the femur. We then subluxed the patella and brought the knee up into flexion. The lateral meniscus, ACL, released. We used the appropriate guide with attached computer navigation to secure the distal femoral cutting block to the femur with pins and completed the distal femoral cut in 0 degrees to the mechanical axis with an oscillating saw. We removed the distal femoral cutting block and turned our attention to the tibia. We used the extramedullary tibial alignment guide with computer navigation to secure the proximal tibial cutting block to the tibia with pins, setting it for a 1mm cut from the more involved side, medially and completed the proximal tibial cut. We then used the spacer block and alignment anya to check the varus- valgus angle of our cuts and the extension gap. We marked our femoral anatomy, including Foard's line and the epicondylar axis. Using that as a rotational guide, we used the sizing guide to size our femur properly, using a stylus to ensure there would be no notching. We then used the AP cutting guide to make our anterior and posterior cuts and chamfer cuts with an oscillating saw. We again checked the flexion and extension gaps and coronal balancing. Next, we sized our tibia and secured a baseplate with appropriate rotation with pins. We placed a trial femur in position and completed preparation of the notch with reamers and box osteotome and placed a trial notch in position. We used trials to choose our liner size and then placed the liner in place and reduced the knee. We used an oscillating saw to resurface the patella, and used a guide to choose the button size and completed patella preparation with the drill. We then placed a trial button in place. At this point, we checked our seven parameters: 1) Limb alignment 2) Extension 3) Flexion against gravity 4) Flexion stability 5) Varus-valgus balancing 6) Component rotation 7) Patella tracking We were satisfied with these and removed all trials with the exception of the baseplate. We completed preparation of the tibia with the appropriate reamer and keel impactor and then removed the baseplate. We placed a bone plug in the distal femur and then irrigated and dried all bony surfaces and injected our pain cocktail. We impacted our tibial, femoral and patellar components into position. We impacted our liner and reduced the knee and held it with axial loading until all cement hardened. We did a lisa-articular cocktail block Once all cement had hardened, we brought the knee back up into flexion and used an osteotome to remove excess cement. We released the tourniquet and achieved hemostasis where necessary. A dilute betadine solution (17.5mL in 500mL saline) was used to wash the joint and left to sit for 3 minutes. This was then irrigated out with copious amounts of pulse lavage. We sprinkled 1g vancomycin powder below the fascia and 1g above the fascia. We copiously irrigated the knee. We re-checked our seven parameters. We closed our capsular incision with a PDS style suture. We irrigated further. We closed the subcutaneous tissue with Vicryl suture and re-approximated the skin with Stanford. We verified all lower extremity compartments were soft and compressible and that we had intact distal pulses. We wrapped the extremity in sterile Webril and lesa bandage. The patient was transferred to the recovery room in stable condition. Condition Good Disposition Still a Patient BURKE SOLER MD Nov 25, 2024 18:17
== END 2024-11-22 13:38 | disposition home or self-care (01) | DRG 470 ==
LOC: SUR 07:27 → OVERFLOW 10:01 → WEST WING 18:27
PROVIDERS: ADMIT Orthopaedic Surgery Adult Reconstructive Orthopaedic Surgery; ATTEND Orthopaedic Surgery Adult Reconstructive Orthopaedic Surgery
PROC: 0SRC0J9 Replacement of Right Knee Joint with Synthetic Substitute, Cemented, Open Approach (ICD-10-PCS; principal; 2024-11-21 09:48)
DX: M17.11 Unilateral primary osteoarthritis, right knee (principal); F41.9 Anxiety disorder, unspecified; G89.4 Chronic pain syndrome; Z96.651 Presence of right artificial knee joint; Z83.3 Family history of diabetes mellitus; Z80.42 Family history of malignant neoplasm of prostate; Z79.899 Other long term (current) drug therapy
CPT/HCPCS: 73562; 86850; 86900; 86901; 97163; G0378; J1100; J1885; J2003; J2250; J2405; J2704; J3490

== ENCOUNTER 2025-02-23 02:05 | Inpatient (IN) | payer MEDICARE, OTHER ==
[~2025-02-23] VITALS: Ht 177.8 cm; Wt 80.0 kg
--- NOTE | 2025-02-23 02:50 | ED.PDOC ---
History of Present Illness HPI Comments 69 y/o M is BIBA for syncope. Per EMS report, patient had an unwitnessed syncopal episode from a standing position, while walking to use the bathroom, this morning. He is stated to have fallen and injured himself on his kitchen floor and sustained multiple abrasion wounds to his left eyebrow and knee. Patient reports recent 2x week history of his blood pressure being elevated in the 150's systolically in addition to having spotty vision amidst no history of hypertension and needing to take half of his Viagra pill dosage to manage it. Over the last 2x days, patient states on spotty vision changing into his entire visual field being white out and lasting 10 minutes in duration each time it occurs. Patient endorses on recent 5 hour travel to [facility]. Denies any prior injuries, sick contact, or further relevant history. Denies any chest pain, shortness of breath, fever, chills, urinary symptoms, or further associated symptoms. Time Seen by MD: 02:20 Reviewed Notes: Nurses Notes, Power Transmission Engineer Notes, Medications, Allergies Allergies: Coded Allergies: NO KNOWN ALLERGIES (Unverified , 01/21/22) Home Meds Active Scripts Alprazolam (Xanax) 0.5 Mg Tb, 1 TAB PO TID, #15 TAB Prov:ABUNDIO RODRIGUEZ PAC 10/07/24 Reported Medications Sildenafil Citrate (Viagra) Unknown Strength Tab, PO DAILY, #6 TAB 5 Refills 11/18/24 Naproxen (NAPROSYN TABLET) Unknown Strength Tb, PO DAILY, #60 TAB 1 Refill 11/18/24 Information Source: Patient, Emergency Med Personnel Mode of Arrival: EMS Severity: Moderate Timing: Hours Duration: Since onset Prehospital treatment: 12 Lead EKG, Accucheck, Coagulator Review of Systems: REVIEW OF SYSTEMS: No fever, no chills, or fatigue HEENT: No sore throat, no earache, no congestion, no neck pain. Cardiac: No chest pain. No palpitations. Lungs: No shortness of breath, no cough. GI: No nausea, no vomiting, no diarrhea, no constipation, no abdominal pain : No dysuria, frequency, or urgency. No hematuria. Musculoskeletal: No joint pain , no joint swelling, no extremity edema. Skin: No rash, no itching. Neuro: Syncope. No headache, no dizziness, no weakness Vital Signs Vital Signs Date Time Temp Pulse Resp B/P (MAP) Pulse Ox O2 Delivery O2 Flow Rate FiO2 02/23/25 02:50 65 02/23/25 02:14 98.0 18 137/88 (104) 95 98.0 Physical Exam General: Awake, alert and oriented. No acute distress. Skin: Left eyebrow and knee abrasions. Skin in warm, dry and intact. Appropriate color for ethnicity. HEENT: The head is normocephalic and atraumatic. Conjunctivae are clear without exudates or hemorrhage. Sclera is non-icteric. EOM are intact. No signs of nystagmus. Eyelids are normal in appearance without swelling or lesions. Oral mucosa is pink and moist. Positive strabismus. Neck: The neck is supple with normal range of motion. No JVD. Cardiac: Heart rate and rhythm are normal. No murmurs, gallops, or rubs are auscultated. Respiratory: No signs of respiratory distress. Lung sounds are clear in all lobes bilaterally without rales, rhonchi, or wheezes. Abdominal: Abdomen is soft, non-tender without distention, guarding or rigidity. Bowel sounds are present and normoactive in all four quadrants. Extremities: Upper and lower extremities are atraumatic in appearance without deformity or edema. Strength to upper and lower extremities are intact. Neurological: The patient is awake, alert and oriented to person, place, and time with normal speech. Speech is clear. There is no facial asymmetry. Psychiatric: Appropriate mood and affect. Good judgement and insight.a Past Medical History PAST MEDICAL HISTORY: Anxiety Past Medical History (Other): Chronic pain syndrome, back Osteoarthritis of the right knee Panic attacks Surgical History: Denies all surgeries Surgical History (Other): Left TKA Family History Family History: Reviewed,noncontributory to illness, No family hx of Cancer, No family hx of DM, No family hx of Heart dee, No family hx of HTN, No family hx ofKidney dee, No family hx of Liver dee, No family hx of Lung dee, No family hx of Stroke Social History Smoker: Non-Smoker Alcohol: Denies ETOH Use Drugs: Denies Drug Use Lives In: Home Was a procedure done? Was a procedure done?: No EKG EKG : Pulse Rate (adult): 65 [place]: Normal Cardiac Rhythm: NSR Block: None Hypertrophy: None ST: Normal Comments No STEMI Differential Dx Considerations may include: Differential diagnoses considered include but are not limited to cardiac struct ural disease, arrhythmia, acute coronary syndrome, orthostasis, pulmonary embolism, dissection, seizure, basilar stroke, other. X-Ray, Labs, Meds, VS Vital Signs Date Time Temp Pulse Resp B/P (MAP) Pulse Ox O2 Delivery O2 Flow Rate FiO2 02/23/25 02:50 65 02/23/25 02:14 98.0 73 18 137/88 (104) 95 98.0 Lab Test 02/23/25 03:25 02/23/25 02:31 Range/Units Troponin I High Sensitivity 7 9 </=54 ng/L White Blood Count 4.2 L 4.4-10.8 10^3/uL Red Blood Count 5.03 4.5-5.90 10^6/uL Hemoglobin 16.4 13.5-17.5 g/dL Hematocrit 47.5 41.0-53.0 % Mean Corpuscular Volume 94.4 80.0-100.0 fL Mean Corpuscular Hemoglobin 32.6 H 28.0-32.0 pg Mean Corpuscular Hemoglobin Concent 34.6 32.0-36.0 g/dL Red Cell Distribution Width 14.5 H 11.8-14.3 % Platelet Count 253 140-450 10^3/uL Mean Platelet Volume 7.6 6.9-10.8 fL Neutrophils (%) (Auto) 57.2 37.0-80.0 % Lymphocytes (%) (Auto) 26.9 10.0-50.0 % Monocytes (%) (Auto) 8.3 0.0-12.0 % Eosinophils (%) (Auto) 6.1 0.0-7.0 % Basophils (%) (Auto) 1.5 0.0-2.0 % Neutrophils # (Auto) 2.4 1.6-8.6 10 ^3/uL Lymphocytes # (Auto) 1.1 0.4-5.4 10 ^3/uL Monocytes # (Auto) 0.3 0-1.3 10 ^3/uL Eosinophils # (Auto) 0.3 0-0.8 10 ^3/uL Basophils # (Auto) 0.1 0-0.2 10 ^3/uL Nucleated Red Blood Cells 0.2 % Sodium Level 142 136-145 mmol/L Potassium Level 4.1 3.5-5.1 mmol/L Chloride Level 110 H 98-107 mmol/L Carbon Dioxide Level 23 20-31 mmol/L Anion Gap 9 5-15 Blood Urea Nitrogen 16 9-23 mg/dL Creatinine 0.80 0.700-1.30 mg/dL Glomerular Filtration Rate Calc 96 >90 mL/min BUN/Creatinine Ratio 20.0 10.0-20.0 Serum Glucose 93 74-106 mg/dL Calcium Level 9.0 8.7-10.4 mg/dL Total Bilirubin 0.2 0.2-1.0 mg/dL Aspartate Amino Transferase (AST) 34 <34 U/L Alanine Aminotransferase (ALT) 46 H 7-40 U/L Alkaline Phosphatase 55 46-116 U/L B-Type Natriuretic Peptide 10.39 0-100 pg/mL Total Protein 7.3 5.7-8.2 g/dL Albumin 4.4 3.2-4.8 g/dL [place] [address] Ph: [phone] DIAGNOSTIC IMAGING Diagnostic Imaging Report : [id number] Signed PATIENT: DAT GIFFORD ACCT: [id number] UNIT: [id number] : 1955 LOC: ER ROOM / BED: / AGE / SEX: 69 / M ADM STATUS: REG ER SERVICE 0251 ORDERING PHYSICIAN: CORNELIO JARQUIN MD PROCEDURE(s): HWOCT - HEAD WITHOUT CONTRAST REASON: SYNCOPE , HEAD INJURY ORDER NUMBER(s): [id number], ACCESSION NUMBER(s): [id number] EXAM: CT HEAD WITHOUT CONTRAST INDICATION: SYNCOPE , HEAD INJURY TECHNIQUE: CT of the head without intravenous contrast. Radiation Dose : 1. Head: CT Dose: CTDI volume is 56.65 mGy. Dose-length product is 908.1 mGy*cm The dose indicators for CT are the volume Computed Tomography (CT) Dose Index (CTDIvol) and the Dose Length Product (DLP), and are measured in units of mGy and mGy-cm, respectively. These indicators are not patient dose, but values generated from the CT scanner acquisition factors. The report includes radiation exposure data for exposures received during this examination. COMPARISON: None FINDINGS: There is no evidence of acute intracranial hemorrhage, extra-axial collection, mass effect, midline shift, herniation or hydrocephalus. Increased prominence of the ventricles, sulci and cisterns is consistent with the sequelae of atrophic cortical volume loss. The pepper-white differentiation is intact. Moderate diffuse confluent periventricular and subcortical white matter hypoattenuation is nonspecific but may be related to small vessel ischemic disease. Bilateral maxillary and ethmoid mucosal sinus disease. The remaining visualized paranasal sinuses and mastoid air cells are clear. The surrounding soft tissues and osseous structures are unremarkable. IMPRESSION: 1. No acute intracranial abnormality. 2. 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 Radiation optimization: All CT scans at this facility use at least one of these dose optimization techniques: automated exposure control mA and/or kV adjustment per patient size (includes targeted exams where dose is matched to clinical indication) or iterative reconstruction. ATED BY: ARTEMIO ALVES MD DICTATED DATE/TIME: 02/23/25316 SIGNED BY: ARTEMIO ALVES MD SIGNED DATE/TIME: 02/23/25316 CC: Time of 1ST Reevaluation: 02:50 Reevaluation 1ST: Unchanged Patient Education/Counseling: Need For Follow Up Family Education/Counseling: No Family Present SEPSIS Sepsis Screen Physician Orders Fall Precautions Initiated (02/23/25 02:24) Saline Lock (02/23/25 02:24) Orthostatic Vital Signs (02/23/25 ) Coagulator (02/23/25 ) Electrocardigram (02/23/25 02:24) Troponin-I Hs (02/23/25 05:24) Electrocardigram (02/23/25 03:24) Electrocardigram (02/23/25 05:24) Clean Wound (02/23/25 ) Apply/Change Dressing (02/23/25 02:24) Head Without Contrast (02/23/25 02:51) Chest Xray 1 View (02/23/25 04:40) Vital Signs Date Time Temp Pulse Resp B/P (MAP) Pulse Ox O2 Delivery O2 Flow Rate FiO2 02/23/25 02:50 65 02/23/25 02:14 98.0 73 18 137/88 (104 95 98.0 Laboratory Tests Test 02/23/25 02:31 White Blood Count 4.2 10^3/uL (4.4-10.8) L Departure 1 Departure Time of Disposition: 04:47 Impression: Primary Impression: Syncope Additional Impression: Head injury Disposition: ADMITTED INPATIENT Condition: Stable Comments 69-year-old male with 2 weeks of dizziness, intermittent presyncopal episodes presents with episode of syncope this evening resulting in closed head injury. Patient admitted to hospitalist service for further treatment, evaluation and monitoring. CT head negative for acute process. Extensive evaluation was performed in attempt to identify or rule out: (See differential diagnosis section) The following tests were ordered, and results were reviewed by me and discussed with patient: (See diagnostic results section) The following test were independently interpreted by me: EKG I reviewed and agreed with the following test results read by other providers: N/A I reviewed the following notes from the pt's past medical encounters: N/A Additional information was gathered from interviewing the following independent historians: EMS personnel Discussion of management or test interpretation with external physician/other qualified health laboratory animal caretaker: Mirna Grant Addressed An acute or chronic illness that poses a threat to life or bodily function: Syncope Decision regarding hospitalization or escalation of hospital level of care: Risk and benefits of admission for further treatment of patient's condition was considered. Due to patient's current clinical condition, high risk of decline and poor outcome if discharged and need for further inpatient management and monitoring, patient will be admitted to the hospital. Drug therapy requiring intensive monitoring for toxicity: N/A Parenteral controlled substances: N/A Decision regarding elective major surgery with identified patient or procedure risk factors: N/A Decision regarding emergency major surgery: N/A Decision not to resuscitate or to de-escalate care because of poor prognosis: N/A Diagnosis or treatment significantly limited by social determinants of health: N/A Critical Care Note Critical Care Time?: No Stability Stability form required: No Heart Score Heart Score: Heart Score Response (Comments) Value History N/A 0 EKG N/A 0 Age N/A 0 Risk Factors N/A 0 Troponin N/A 0 Total 0 I personally scribed for CORNELIO JARQUIN MD ([email or web address]) on 02/23/25 at 02:50. Electronically submitted by Armando Marshall ([email or web address]). I personally scribed for CORNELIO JARQUIN MD ([email or web address]) on 02/23/25 at 03:24. Electronically submitted by Armando Marshall ([email or web address]). I personally scribed for CORNELIO JARQUIN MD ([email or web address]) on 02/23/25 at 03:52. Electronically submitted by Armando Marshall ([email or web address]). CORNELIO JARQUIN MD Feb 23, 2025 02:50
[2025-02-23 03:03] LABS: Basophils # (auto) 0.1 10 ^3/uL (0-0.2); Basophils % (auto) 1.5 % (0.0-2.0); Eosinophils # (auto) 0.3 10 ^3/uL (0-0.8); Eosinophils % (auto) 6.1 % (0.0-7.0); Hematocrit 47.5 % (41.0-53.0); Hemoglobin 16.4 g/dL (13.5-17.5); Lymphocytes # (auto) 1.1 10 ^3/uL (0.4-5.4); Lymphocytes % (auto) 26.9 % (10.0-50.0); Mean Corpuscular Hemoglobin 32.6 pg (28.0-32.0); Mean Corpuscular Hgb Conc. 34.6 g/dL (32.0-36.0); Mean Corpuscular Volume 94.4 fL (80.0-100.0); Monocytes # (auto) 0.3 10 ^3/uL (0-1.3); Monocytes % (auto) 8.3 % (0.0-12.0); Neutrophils # (auto) 2.4 10 ^3/uL (1.6-8.6); Neutrophils % (auto) 57.2 % (37.0-80.0); Nucleated Red Blood Cells % 0.2 %; Platelet Count (auto) 253 10^3/uL (140-450); Red Blood Cells 5.03 10^6/uL (4.5-5.90); Red Cell Distribution Width 14.5 % (11.8-14.3); White Blood Cell 4.2 10^3/uL (4.4-10.8)
--- NOTE | 2025-02-23 03:19 | DVH ---
EXAM: CT HEAD WITHOUT CONTRAST INDICATION: SYNCOPE , HEAD INJURY TECHNIQUE: CT of the head without intravenous contrast. Radiation Dose : 1. Head: CT Dose: CTDI volume is 56.65 mGy. Dose-length product is 908.1 mGy*cm The dose indicators for CT are the volume Computed Tomography (CT) Dose Index (CTDIvol) and the Dose Length Product (DLP), and are measured in units of mGy and mGy-cm, respectively. These indicators are not patient dose, but values generated from the CT scanner acquisition factors. The report includes radiation exposure data for exposures received during this examination. COMPARISON: None FINDINGS: There is no evidence of acute intracranial hemorrhage, extra-axial collection, mass effect, midline s hift, herniation or hydrocephalus. Increased prominence of the ventricles, sulci and cisterns is consistent with the sequelae of atrophi c cortical volume loss. The pepper-white differentiation is intact. Moderate diffuse confluent periventricular and subcortical white matter hypoattenuation is nonspecifi c but may be related to small vessel ischemic disease. Bilateral maxillary and ethmoid mucosal sinus disease. The remaining visualized paranasal sinuses and mastoid air cells are clear. The surrounding soft tissues and osseous structures are unremarkable. IMPRESSION: 1. No acute intracranial abnormality. 2. 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 Radiation optimization: All CT scans at this facility use at least one of these dose optimization elisabeth hniques: automated exposure control mA and/or kV adjustment per patient size (includes targeted exam s where dose is matched to clinical indication) or iterative reconstruction.
[2025-02-23 03:24] LABS: Albumin 4.4 g/dL (3.2-4.8); Alkaline Phosphatase 55 U/L (46-116); Anion Gap 9 (5-15); Blood Urea Nitrogen 16 mg/dL (9-23); Carbon Dioxide 23 mmol/L (20-31); Glucose 93 mg/dL (74-106); Potassium 4.1 mmol/L (3.5-5.1); Sodium 142 mmol/L (136-145); Total Protein 7.3 g/dL (5.7-8.2)
[2025-02-23 03:25] LABS: Alanine Aminotransferase 46 U/L (7-40); Aspartate Aminotransferase 34 U/L (<34); Bilirubin, Total 0.2 mg/dL (0.2-1.0); Chloride 110 mmol/L (98-107)
[2025-02-23] MEDS ORDERED: ACETAMINOPHEN 325 MG TAB PO PRN (04:45)
[2025-02-23] MEDS ORDERED: ONDANSETRON HCL 4 MG/2 ML VIAL IV PRN (04:45)
--- NOTE | 2025-02-23 04:58 | DVHHP2 ---
Admitting Diagnosis: Syncope, Dizziness History of Present Illness History Source: Patient Exam Limitations: No limitations HPI Mr. Gregg Brown is a 69 yo male with history of anxiety, left knee replacement who presents with a cheif complaint of an unwitnessed syncopal episode from a standing position, while walking to use the bathroom, this morning. He is stated to have fallen and injured himself on his kitchen floor and sustained multiple abrasion wounds to his left eyebrow and knee. Patient reports recent two week history of his blood pressure being elevated in the 150's systolically in addition to having spotty vision amidst no history of hypertension and needing to take half of his Viagra pill dosage to manage it. Over the last 2 days, patient states on spotty vision changing into his entire visual field being white out and lasting 10 minutes in duration each time it occurs. Patient endorses on recent [address] travel to [facility] couple weeks ago and was "not feeling well" having chest pressure intermittently. Patient currently denies any chest pain, dyspnea, headaches, dizziness, blurry vision, nausea, vomiting, fevers, chills. Patient admitted for further evaluation. Home Meds Active Scripts Alprazolam (Xanax) 0.5 Mg Tb, 1 TAB PO TID, #15 TAB Prov:ABUNDIO RODRIGUEZ PAC 10/07/24 Reported Medications Sildenafil Citrate (Viagra) Unknown Strength Tab, PO DAILY, #6 TAB 5 Refills 11/18/24 Naproxen (NAPROSYN TABLET) Unknown Strength Tb, PO DAILY, #60 TAB 1 Refill 11/18/24 Past Medical History Cardiac: No pertinent Hx Pulmonary: No pertinent Hx Central Nervous System: No pertinent Hx GI: No pertinent Hx Hemotology/Oncology: No pertinent Hx Hepatobiliary: No pertinent Hx Psychiatric: Anxiety Musculoskeletal: No pertinent Hx Rheumotologic: No pertinent Hx Infectious Disease: No peritnent Hx ENT: No pertinent Hx Renal/: No pertinent Hx Endocrine: No pertinent Hx Dermatology: No pertinent Hx Patient Family History: Arthritis G8 MOTHER Diabetes mellitus G8 MOTHER FH: prostate cancer G8 FATHER FH: renal failure G8 MOTHER, Onset:30's - 40 Gout G8 MOTHER Hypertension G8 FATHER, Onset:30s - 40 Smoker: No Hx (Negative) Alocohol: Occassional Drugs: None Lives with: With family Domestic Violence: Neg Review of Systems Constitutional: No symptom reported Ears, Nose, & Throat: No symptom reported Eyes: No symptom reported Pulmonary/Respiratory: No symptom reported Cardiovascular: No symptom reported Gastrointestinal: No symptom reported Genitourinary: No symptom reported Musculoskeletal: No symptom reported Skin: No symptom reported Psychiatric: No symptom reported Endocrine: No symptom reported Hemotologic/Lymphatic: No symptom reported All Other Systems dizziness, syncope, H&P Exam Vital Signs Vital Signs Date Time Temp Pulse Resp B/P (MAP) Pulse Ox O2 Delivery O2 Flow Rate FiO2 02/23/25 02:50 65 02/23/25 02:14 98.0 18 137/88 (104) 95 98.0 General Appeara: Well developed, Well nourished, Normal Appearance Head Exam: Normal inspection Neck Exam: Normal inspection, Non-tender, Normal alignment Eye Exam: bilateral eye Normal inspection, bilateral eye PERRL, bilateral eye EOMI Ear Exam: bilateral ear Auricle normal Nasal Exam: Normal inspection Mouth: Normal Inspection Pulmonary/Respiratory: Normal inspection, Normal breath sounds, Chest non- tender, Lungs clear Cardiovascular/Chest: Normal inspection, Regular rate, Normal Rhythm Peripheral Pulses: 2+ dorsalis pedis (R), 2+ dorsalis pedis (L), 2+ Radial (R), 2+ Radial (L) Abdominal Exam: Normal bowel sounds, Soft, No tenderness Rectal Exam: Deferred Back Exam: Normal inspection Pelvic Exam: Not done RESOURCE FORESTER Exam: Normal hearing, Normal speech, PERRL Motor/Sensory: Normal sensory function, Normal motor function Neuro/Mental St: Alert, Oriented Appearance: Appropriate appearance, Appropriate insight, Disheveled Eye contact/ Speech: Cooperative, Good eye contact, Increased rate of speech Thoughts/Psych: Normal thought pattern Coordination/Gait: Normal finger->nose, Normal gait Skin Exam: Normal color, Warm/dry, Other (left facial bruising, left eye abrasion) Wounds left facial abrasion, left facial bruising Labs/Xrays Labs Test 02/23/25 03:25 02/23/25 02:31 Range/Units Troponin I High Sensitivity 7 </=54 ng/L White Blood Count 4.2 L 4.4-10.8 10^3/uL Red Blood Count 5.03 4.5-5.90 10^6/uL Hemoglobin 16.4 13.5-17.5 g/dL Hematocrit 47.5 41.0-53.0 % Mean Corpuscular Volume 94.4 80.0-100.0 fL Mean Corpuscular Hemoglobin 32.6 H 28.0-32.0 pg Mean Corpuscular Hemoglobin Concent 34.6 32.0-36.0 g/dL Red Cell Distribution Width 14.5 H 11.8-14.3 % Platelet Count 253 140-450 10^3/uL Mean Platelet Volume 7.6 6.9-10.8 fL Neutrophils (%) (Auto) 57.2 37.0-80.0 % Lymphocytes (%) (Auto) 26.9 10.0-50.0 % Monocytes (%) (Auto) 8.3 0.0-12.0 % Eosinophils (%) (Auto) 6.1 0.0-7.0 % Basophils (%) (Auto) 1.5 0.0-2.0 % Neutrophils # (Auto) 2.4 1.6-8.6 10 ^3/uL Lymphocytes # (Auto) 1.1 0.4-5.4 10 ^3/uL Monocytes # (Auto) 0.3 0-1.3 10 ^3/uL Eosinophils # (Auto) 0.3 0-0.8 10 ^3/uL Basophils # (Auto) 0.1 0-0.2 10 ^3/uL Nucleated Red Blood Cells 0.2 % Sodium Level 142 136-145 mmol/L Potassium Level 4.1 3.5-5.1 mmol/L Chloride Level 110 H 98-107 mmol/L Carbon Dioxide Level 23 20-31 mmol/L Anion Gap 9 5-15 Blood Urea Nitrogen 16 9-23 mg/dL Creatinine 0.80 0.700-1.30 mg/dL Glomerular Filtration Rate Calc 96 >90 mL/min BUN/Creatinine Ratio 20.0 10.0-20.0 Serum Glucose 93 74-106 mg/dL Calcium Level 9.0 8.7-10.4 mg/dL Total Bilirubin 0.2 0.2-1.0 mg/dL Aspartate Amino Transferase (AST) 34 <34 U/L Alanine Aminotransferase (ALT) 46 H 7-40 U/L Alkaline Phosphatase 55 46-116 U/L B-Type Natriuretic Peptide 10.39 0-100 pg/mL Total Protein 7.3 5.7-8.2 g/dL Albumin 4.4 3.2-4.8 g/dL Assessment/Plan Problem List: (1) Syncope (2) Anxiety Plan This is a 69 yo male with known history of anxiety who presents to the hospital with status post syncopal episode with fall. Patient admitted for further evaluation of 1. Syncopal episode with fall 2. Dizziness 3. Chronic anxiety Plan Admit Telemetry unit Cardiology consultation, 2D echocardiogram Orthostatic blood pressures Fall Precautions GI ppx DVT ppx SCD's BLE Discussed all above with patient who verbalizes agreement and understanding of care plan. All questions were answered. Discussed with supervising MD. Plan discussed with: Patient, Other Code Visit Code Visit Total Time (mins): 45 Additional Comments Additional Comments Additional Comments 69-year-old male with known history of anxiety disorder presents to the hospital with episode of syncope. He had a fall and due to his head. Found to have 1. Syncope rule out cardiac arrhythmias 2. Dizziness with blurry vision beta episodes of flashes of light ruled out seizure disorder 3. Rule out orthostatic hypotension 4. Ruled out structural heart disease 5. Anxiety disorder 6. Closed head injury -check orthostatic vitals, 2D echo cardiology consultation, Neurology consultation. NORA CHAND Feb 23, 2025 04:58 KJ FOSTER MD Feb 23, 2025 17:00
[2025-02-23] MEDS: BACITRACIN TOP OINT 1 UD PKG TOP ONE (05:17)
[2025-02-23] MEDS: SODIUM CHLORIDE 0.9% 1,000 ML IV ONE (05:17)
[2025-02-23 05:24] VITALS: PULSE 73; RESP 20; O2SAT 94
--- NOTE | 2025-02-23 06:24 | DVH ---
CHEST RADIOGRAPH Indication: Syncope Technique: Single frontal view of the chest was obtained. Comparison: None FINDINGS: Lines and Tubes: None Lungs: Subsegmental atelectasis in the left midlung. No focal consolidation. Pleura: No effusion. No pneumothorax. Cardiomediastinal contours: Unremarkable Bones: No acute osseous abnormality. Old right rib fractures. IMPRESSION: 1. No acute cardiopulmonary disease.
--- NOTE | 2025-02-23 07:18 | ECG ---
[facility] Test Date: 2025-02-23 Test Time: 02:16:28 Pat Name: DAT GIFFORD Department: ED Room: 0284T Gender: M [employer] Technician: RAJESH : 1955 Requested By: CORNELIO JARQUIN Order Number: [id number] Reading MD: Jaden Haney Measurements Intervals [place] Rate: 65 P: 9 AR: 177 QRS: 7 QRSD: 105 T: 5 QT: 426 QTc: 443 Interpretive Statements Sinus rhythm Left ventricular hypertrophy Electronically Signed On 02-24-2025 21:18:00 PDT by Jaden Haney Please click the below link to view image of tracing.
--- NOTE | 2025-02-23 10:31 | DVHINCON2 ---
Date Seen: Feb 23, 2025 Referring Physician JEROME Grant Reason for Consultation Syncope, dizziness History of Present Illness This is a 69-year-old male patient who presents to the emergency room with chief complaint of syncopal episode. The patient reports that at approximately 1:30 a.m. this morning he was getting up to use the restroom. He reports feeling dizziness and palpitations before experiencing a syncopal episode. He reports hitting his head and is unsure of how long he was unconscious for. He does admit to drinking a shot of rum that night. Of note, the patient came in with a elevated serum alcohol level of 104.9mg/dL. Cardiology has been consulted at this time for syncope workup. Initial twelve lead electrocardiogram reveals normal sinus rhythm with left ventricular hypertrophy. Serial troponin levels have been negative. Significant past medical history includes atrial fibrillation (not on NOAC), arthritis, erectile dysfunction, prostate cancer status post prostatectomy and alcohol abuse. The patient reports he was diagno sed with atrial fibrillation over 20 years ago. He reports he used to see a quality control supervisor and at one point went back into a normal sinus rhythm and was told that he does not see a quality control supervisor anymore. Past Medical History Past medical history reviewed. No other significant than mentioned above. Past Surgical History Bilateral knee replacement Laminectomy Prostatectomy Family History: Arthritis G8 MOTHER Diabetes mellitus G8 MOTHER FH: prostate cancer G8 FATHER FH: renal failure G8 MOTHER, Onset: - Gout G8 MOTHER Hypertension G8 FATHER, Onset: - Family History Family history reviewed. Social History Patient admits to drinking one shot of rum every night Denies any illicit drug use Denies any tobacco use Allergies: Coded Allergies: NO KNOWN ALLERGIES (Unverified , 01/21/22) Home Meds Active Scripts Alprazolam (Xanax) 0.5 Mg Tb, 1 TAB PO TID, #15 TAB Prov:ABUNDIO RODRIGUEZ PAC 10/07/24 Reported Medications Sildenafil Citrate (Viagra) Unknown Strength Tab, PO DAILY, #6 TAB 5 Refills 11/18/24 Naproxen (NAPROSYN TABLET) Unknown Strength Tb, PO DAILY, #60 TAB 1 Refill 11/18/24 Home Meds Home medications reviewed. Current Medications Current Medications Medications (Trade) Dose Ordered Sig/Joellen Route PRN Reason Start Time Stop Time Status Last Admin Ondansetron HCl (Zofran) 4 mg Q6HPRN PRN IV NAUSEA / VOMITING 02/23/25 04:45 Famotidine (Pepcid Tablet) 20 mg BID PO 02/23/25 10:00 Acetaminophen (Tylenol Tablet) 650 mg Q6HPRN PRN PO PAIN SCALE 1-3 OR TEMP>100.4 02/23/25 04:45 Alprazolam (Xanax Tablet) 0.5 mg Q8HPRN PRN PO ANXIETY 02/23/25 05:00 Review of Systems Constitutional: No symptom reported Ears, Nose, & Throat: No symptom reported Eyes: No symptom reported Neurological: Dizziness, syncope Pulmonary/Respiratory: No symptoms reported Cardiovascular: Palpitations Gastrointestinal: No symptom reported Genitourinary: No symptom reported Musculoskeletal: No symptom reported Skin: No symptom reported Psychiatric: No symptom reported Endocrine: No symptom reported Hematologic/Lymphatic: No symptom reported Vital Signs Vital Signs Date Time Temp Pulse Resp B/P (MAP) Pulse Ox O2 Delivery O2 Flow Rate FiO2 02/23/25 08:24 97.6 76 17 139/86 (103) 98 97.6 02/23/25 05:24 Room Air* 0 21 Physical Exam General Appearance: Cooperative. Well-developed. Well-nourished. No acute distress. Pulmonary/Respiratory: Clear, bilateral breaths sounds. Cardiovascular/Chest: Regular rate and rhythm. Peripheral Pulses: 2+ Radial (R). 2+ Radial (L). 2+ Pedal (R). 2+ Pedal (L) Abdominal Exam: Normal bowel sounds. Ankle Exam: Negative ankle edema Lower extremities: Negative lower extremity edema Neuro/Mental Status: A/OX4, coherent. Thoughts/Psych: Normal thought pattern. Appropriate mood and affect. Good judgment and insight. Appearance: No acute distress. Skin Exam: Left eyebrow and left cheek laceration. Skin warm and dry Labs/Diagnostic Data Labs Test 02/23/25 05:36 02/23/25 02:31 Range/Units Troponin I High Sensitivity 7 </=54 ng/L Plasma/Serum Blood Alcohol 104.9 H <10 mg/dL White Blood Count 4.2 L 4.4-10.8 10^3/uL Red Blood Count 5.03 4.5-5.90 10^6/uL Hemoglobin 16.4 13.5-17.5 g/dL Hematocrit 47.5 41.0-53.0 % Mean Corpuscular Volume 94.4 80.0-100.0 fL Mean Corpuscular Hemoglobin 32.6 H 28.0-32.0 pg Mean Corpuscular Hemoglobin Concent 34.6 32.0-36.0 g/dL Red Cell Distribution Width 14.5 H 11.8-14.3 % Platelet Count 253 140-450 10^3/uL Mean Platelet Volume 7.6 6.9-10.8 fL Neutrophils (%) (Auto) 57.2 37.0-80.0 % Lymphocytes (%) (Auto) 26.9 10.0-50.0 % Monocytes (%) (Auto) 8.3 0.0-12.0 % Eosinophils (%) (Auto) 6.1 0.0-7.0 % Basophils (%) (Auto) 1.5 0.0-2.0 % Neutrophils # (Auto) 2.4 1.6-8.6 10 ^3/uL Lymphocytes # (Auto) 1.1 0.4-5.4 10 ^3/uL Monocytes # (Auto) 0.3 0-1.3 10 ^3/uL Eosinophils # (Auto) 0.3 0-0.8 10 ^3/uL Basophils # (Auto) 0.1 0-0.2 10 ^3/uL Nucleated Red Blood Cells 0.2 % Sodium Level 142 136-145 mmol/L Potassium Level 4.1 3.5-5.1 mmol/L Chloride Level 110 H 98-107 mmol/L Carbon Dioxide Level 23 20-31 mmol/L Anion Gap 9 5-15 Blood Urea Nitrogen 16 9-23 mg/dL Creatinine 0.80 0.700-1.30 mg/dL Glomerular Filtration Rate Calc 96 >90 mL/min BUN/Creatinine Ratio 20.0 10.0-20.0 Serum Glucose 93 74-106 mg/dL Calcium Level 9.0 8.7-10.4 mg/dL Total Bilirubin 0.2 0.2-1.0 mg/dL Aspartate Amino Transferase (AST) 34 <34 U/L Alanine Aminotransferase (ALT) 46 H 7-40 U/L Alkaline Phosphatase 55 46-116 U/L B-Type Natriuretic Peptide 10.39 0-100 pg/mL Total Protein 7.3 5.7-8.2 g/dL Albumin 4.4 3.2-4.8 g/dL Thyroid Stimulating Hormone (TSH) 1.89 0.55-4.78 uIU/mL Assessment Syncope, rule out cardiac etiology Questionable history of atrial fibrillation Rule out cardiac arrhythmia Rule out structural heart disease Dyslipidemia, newly diagnosed Prostate cancer status post prostatectomy Acute alcohol intoxication Plan/Recommendation We will continue with the following plan/recommendations (Dr. Haney): * Transthoracic echocardiogram to evaluate cardiac function * Bilateral carotid ultrasound * Orthostatic vital signs * Initiate lipid-lowering agent * Continuous telemetry monitoring Thank you for allowing us to care for this patient. Please call with any questions or concerns. Critical care time spent: 44 minutes This medical document was created using an electronic medical record system with voice recognition software and computerized dictation system. Although this document has been carefully reviewed, there might still be some phonetic and typographical errors. Occasional wrong-word or ``sound-alike substitutions may have occurred due to the inherent limitations of voice recognition software. These areas are purely typographical due to imperfections of the software programs and do not reflect any compromise in the patient's medical care. Please read the chart carefully and recognize, using context, where these substitutions have occurred. Plan discussed with: Patient NYHA Physical activity limitations: NA Date of Service: Feb 23, 2025 Billing Provider: MICHEL ALFONSO Cardiology Common Codes: [id number] INP/OBS CARE (High) Cardiology Consultation Codes: [id number] CONSULT <45MIN MICHEL ALFONSO Feb 23, 2025 10:31
[2025-02-23 11:57] LABS: Magnesium 2.2 mg/dL (1.6-2.6)
--- NOTE | 2025-02-23 12:16 | DVH ---
Carotid Duplex Date: 02/23/2025 11:25 AM Clinical History: syncope Comparison: None Technique: Duplex doppler evaluation of the extracranial carotid and vertebral arteries including col or doppler and spectral/pulsed waveform analysis was performed. Findings: RIGHT SIDE: The peak systolic velocities are 533 cm/s in the distal CCA and 88 cm/s in the proximal ICA.The ICA/C CA ratio is less than 2. The external carotid artery is patent with peak systolic velocity of 65 cm/s proximally. There is appropriate antegrade flow in the right vertebral artery. LEFT SIDE: The peak systolic velocities are 64 cm/s in the distal CCA and 104cm/s in the proximal ICA. The ICA/ CCA ratio is less than 2. The external carotid artery is patent with peak systolic velocity of 43 cm/s proximally. There is appropriate antegrade flow in the left vertebral artery. IMPRESSION: 1. No hemodynamically significant stenosis noted in the right carotid system. 2. No hemodynamically significant stenosis noted in the left carotid system. 3. Reference: Radiology 2003; 229:[id number]
[2025-02-23] MEDS: FAMOTIDINE 20 MG TAB PO SCH (12:29)
[2025-02-23 13:09] LABS: Cannabinoid Screen, Urine Neg (NEGATIVE); Phencyclidine Screen, Urine Neg (NEGATIVE)
[2025-02-23 13:11] LABS: Amphetamine Screen, Urine Neg (NEGATIVE); Barbiturate Scree,Urine Neg (NEGATIVE); Benzodiazephine Screen, Urine Neg (NEGATIVE); Cocaine Screen, Urine Neg (NEGATIVE); Opiate Scree,Urine Neg (NEGATIVE)
[2025-02-23 17:16] VITALS: BP 155/80; PULSE 80; RESP 18; TEMP 98.4; O2SAT 98
[2025-02-23 17:35] VITALS: BP 155/80; PULSE 80; RESP 18; TEMP 98.4; O2SAT 98
[2025-02-23 17:52] VITALS: O2SAT 98
[2025-02-23 20:00] VITALS: PULSE 95
[2025-02-23] MEDS: ALPRAZolam 0.5 MG TAB PO PRN (20:26)
[2025-02-23 21:00] VITALS: BP 149/76; PULSE 78; RESP 18; TEMP 98.7; O2SAT 99
[2025-02-23] MEDS: ATORVASTATIN 20 MG TAB PO SCH (21:28)
[2025-02-24 01:00] VITALS: BP 145/72; PULSE 60; RESP 18; TEMP 98.6; O2SAT 97
[2025-02-24 05:00] VITALS: BP 140/69; PULSE 57; RESP 18; TEMP 98.4; O2SAT 96
[2025-02-24 08:00] VITALS: PULSE 65
[2025-02-24 09:00] VITALS: BP 134/89; PULSE 66; RESP 18; TEMP 98.6; O2SAT 95
--- NOTE | 2025-02-24 09:27 | DVHINCON2 ---
Date of Consultation Date Date: 02/24/25 History of Present Illness History of Present Illness Gregg Brown is a 69 year old male who presents with Family History Family History Family History: Arthritis G8 MOTHER Diabetes mellitus G8 MOTHER FH: prostate cancer G8 FATHER FH: renal failure G8 MOTHER, Onset: Gout G8 MOTHER Hypertension G8 FATHER, Onset: Allergies: Coded Allergies: NO KNOWN ALLERGIES (Unverified , 01/21/22) Home Meds Active Scripts Alprazolam (Xanax) 0.5 Mg Tb, 1 TAB PO TID, #15 TAB Prov:ABUNDIO RODRIGUEZ Leny PAC 10/07/24 Reported Medications Sildenafil Citrate (Viagra) Unknown Strength Tab, PO DAILY, #6 TAB 5 Refills 11/18/24 Naproxen (NAPROSYN TABLET) Unknown Strength Tb, PO DAILY, #60 TAB 1 Refill 11/18/24 Current Medications Current Medications Medications (Trade) Dose Ordered Sig/Joellen Route PRN Reason Start Time Stop Time Status Last Admin Famotidine (Pepcid Tablet) 20 mg BID PO 02/23/25 10:00 02/23/25 21:28 Atorvastatin Calcium (Lipitor) 40 mg HS PO 02/23/25 22:00 02/23/25 21:28 Physical Examination General Examination: Last Vital sign Vital Signs Date Time Temp Pulse Resp B/P (MAP) Pulse Ox O2 Delivery O2 Flow Rate FiO2 02/24/25 08:01 Nasal Cannula* 2 28 02/24/25 05:00 98.4 57 18 140/69 (92) 96 98.4 General: General: No apparent distress, appears comfortable. Cooperative. Neurological Examination: Neurological Examination: Mental Status: Cranial Nerves: Motor Examination: Reflexes: Sensory: Coordination: Gait: Labs: Labs: Laboratory Tests Test 02/23/25 02:31 02/23/25 03:25 02/23/25 05:36 02/23/25 12:34 Range/Units White Blood Count 4.2 L 4.4-10.8 10^3/uL Red Blood Count 5.03 4.5-5.90 10^6/uL Hemoglobin 16.4 13.5-17.5 g/dL Hematocrit 47.5 41.0-53.0 % Mean Corpuscular Volume 94.4 80.0-100.0 fL Mean Corpuscular Hemoglobin 32.6 H 28.0-32.0 pg Mean Corpuscular Hemoglobin Concent 34.6 32.0-36.0 g/dL Red Cell Distribution Width 14.5 H 11.8-14.3 % Platelet Count 253 140-450 10^3/uL Mean Platelet Volume 7.6 6.9-10.8 fL Neutrophils (%) (Auto) 57.2 37.0-80.0 % Lymphocytes (%) (Auto) 26.9 10.0-50.0 % Monocytes (%) (Auto) 8.3 0.0-12.0 % Eosinophils (%) (Auto) 6.1 0.0-7.0 % Basophils (%) (Auto) 1.5 0.0-2.0 % Neutrophils # (Auto) 2.4 1.6-8.6 10 ^3/uL Lymphocytes # (Auto) 1.1 0.4-5.4 10 ^3/uL Monocytes # (Auto) 0.3 0-1.3 10 ^3/uL Eosinophils # (Auto) 0.3 0-0.8 10 ^3/uL Basophils # (Auto) 0.1 0-0.2 10 ^3/uL Nucleated Red Blood Cells 0.2 % Sodium Level 142 136-145 mmol/L Potassium Level 4.1 3.5-5.1 mmol/L Chloride Level 110 H 98-107 mmol/L Carbon Dioxide Level 23 20-31 mmol/L Anion Gap 9 5-15 Blood Urea Nitrogen 16 9-23 mg/dL Creatinine 0.80 0.700-1.30 mg/dL Glomerular Filtration Rate Calc 96 >90 mL/min BUN/Creatinine Ratio 20.0 10.0-20.0 Serum Glucose 93 74-106 mg/dL Hemoglobin A1c 5.1 <5.7 % A1C Calcium Level 9.0 8.7-10.4 mg/dL Total Bilirubin 0.2 0.2-1.0 mg/dL Aspartate Amino Transferase (AST) 34 <34 U/L Alanine Aminotransferase (ALT) 46 H 7-40 U/L Alkaline Phosphatase 55 46-116 U/L Troponin I High Sensitivity 9 7 7 </=54 ng/L B-Type Natriuretic Peptide 10.39 0-100 pg/mL Total Protein 7.3 5.7-8.2 g/dL Albumin 4.4 3.2-4.8 g/dL Thyroid Stimulating Hormone (TSH) 1.89 0.55-4.78 uIU/mL Thyroxine (T4) Pending Magnesium Level 2.2 1.6-2.6 mg/dL Triglycerides Level 206 H < 150 mg/dL Cholesterol Level 214 H < 200 mg/dL LDL Cholesterol 144 H < 100 mg/dL HDL Cholesterol 53 40-59 mg/dL Plasma/Serum Blood Alcohol 104.9 H <10 mg/dL Urine Opiates Screen Neg NEGATIVE Urine Fentanyl Screen Neg NEGATIVE Urine Barbiturates Screen Neg NEGATIVE Urine Phencyclidine Screen Neg NEGATIVE Urine Amphetamines Screen Neg NEGATIVE Urine Benzodiazepines Screen Neg NEGATIVE Urine Cocaine Screen Neg NEGATIVE Urine Cannabinoids Screen Neg NEGATIVE Test 02/23/25 13:50 02/23/25 21:50 Range/Units Troponin I High Sensitivity 9 14 </=54 ng/L Assessment/Plan Assessment/Plan Assessment and Plan:Gregg Brown is a 69 year old male who presents with GAB CRUMP MD Feb 24, 2025 09:27
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
--- NOTE | 2025-02-24 13:05 | DVHPN2 ---
Consult Progress Note Subjective Other Systems: Patient in normal sinus rhythm on property assessment monitor Objective vital signs Vital Sign Date Time Temp Pulse Resp B/P (MAP) Pulse Ox O2 Delivery O2 Flow Rate FiO2 02/24/25 09:00 98.6 66 18 134/89 (104) 95 98.6 02/24/25 08:01 Nasal Cannula* 2 28 Total Intake and Output 02/23/25 02/23/25 02/24/25 15:00 23:00 07:00 Intake Total 800 ml Output Total 950 ml Balance -150 ml medications Current Medications Medications Dose Ordered Sig/Joellen Route Start Time Stop Time Status Last Admin Dose Admin Ondansetron HCl 4 mg Q6HPRN PRN IV 02/23/25 04:45 Famotidine 20 mg BID PO 02/23/25 10:00 02/24/25 10:12 20 MG Acetaminophen 650 mg Q6HPRN PRN PO 02/23/25 04:45 Alprazolam 0.5 mg Q8HPRN PRN PO 02/23/25 05:00 02/23/25 20:26 0.5 MG Atorvastatin Calcium 40 mg HS PO 02/23/25 22:00 02/23/25 21:28 40 MG Examination: GENERAL:Normal, LUNGS:Normal, CVS:Normal, NEURO:Normal laboratory and microbiology Laboratory Tests 02/23/25 02:31 Test 02/23/25 02:31 Range/Units Serum Glucose 93 74-106 mg/dL Problem List/Assessment/Plan Problem List/Assessment/Plan Syncope, rule out cardiac etiology Questionable history of atrial fibrillation Rule out cardiac arrhythmia Rule out structural heart disease Dyslipidemia, newly diagnosed History prostate cancer status post prostatectomy Acute alcohol intoxication Plan/Recommendation (Dr. Haney): * Transthoracic echocardiogram to evaluate cardiac function * Bilateral carotid ultrasound: No hemodynamically significant stenosis in left or right carotid system * Orthostatic vital signs * Initiate lipid-lowering agent * Continuous telemetry monitoring Consider outpatient event monitor if deemed necessary. Thank you for allowing us to care for this patient. Please call with any questions or concerns. This medical document was created using an electronic medical record system with voice recognition software and computerized dictation system. Although this document has been carefully reviewed, there might still be some phonetic and typographical errors. Occasional wrong-word or ``sound-alike substitutions may have occurred due to the inherent limitations of voice recognition software. These areas are purely typographical due to imperfections of the software programs and do not reflect any compromise in the patient's medical care. Please read the chart carefully and recognize, using context, where these substitutions have occurred. Plan discussed with: Patient Date of Service: Feb 24, 2025 Billing Provider: MICHEL ALFONSO Common Visit Codes: [id number] INP/OBS CARE(HIGH) MICHEL ALFONSO Feb 24, 2025 13:05
--- NOTE | 2025-02-24 16:43 | DVHDS2 ---
Discharge Summary Date of Admission Feb 23, 2025 at 04:45 Date of Discharge: Feb 24, 2025 Labs/Diagnostic Data: Laboratory Results Test 02/23/25 21:50 02/23/25 12:34 02/23/25 05:36 02/23/25 02:31 Troponin I High Sensitivity 14 ng/L (</=54) Urine Opiates Screen Neg (NEGATIVE) Urine Fentanyl Screen Neg (NEGATIVE) Urine Barbiturates Screen Neg (NEGATIVE) Urine Phencyclidine Screen Neg (NEGATIVE) Urine Amphetamines Screen Neg (NEGATIVE) Urine Benzodiazepines Screen Neg (NEGATIVE) Urine Cocaine Screen Neg (NEGATIVE) Urine Cannabinoids Screen Neg (NEGATIVE) Magnesium Level 2.2 mg/dL (1.6-2.6) Triglycerides Level 206 mg/dL (< 150) Cholesterol Level 214 mg/dL (< 200) LDL Cholesterol 144 mg/dL (< 100) HDL Cholesterol 53 mg/dL (40-59) Plasma/Serum Blood Alcohol 104.9 mg/dL (<10) White Blood Count 4.2 10^3/uL (4.4-10.8) Red Blood Count 5.03 10^6/uL (4.5-5.90) Hemoglobin 16.4 g/dL (13.5-17.5) Hematocrit 47.5 % (41.0-53.0) Mean Corpuscular Volume 94.4 fL (80.0-100.0) Mean Corpuscular Hemoglobin 32.6 pg (28.0-32.0) Mean Corpuscular Hemoglobin Concent 34.6 g/dL (32.0-36.0) Red Cell Distribution Width 14.5 % (11.8-14.3) Platelet Count 253 10^3/uL (140-450) Mean Platelet Volume 7.6 fL (6.9-10.8) Neutrophils (%) (Auto) 57.2 % (37.0-80.0) Lymphocytes (%) (Auto) 26.9 % (10.0-50.0) Monocytes (%) (Auto) 8.3 % (0.0-12.0) Eosinophils (%) (Auto) 6.1 % (0.0-7.0) Basophils (%) (Auto) 1.5 % (0.0-2.0) Neutrophils # (Auto) 2.4 10 ^3/uL (1.6-8.6) Lymphocytes # (Auto) 1.1 10 ^3/uL (0.4-5.4) Monocytes # (Auto) 0.3 10 ^3/uL (0-1.3) Eosinophils # (Auto) 0.3 10 ^3/uL (0-0.8) Basophils # (Auto) 0.1 10 ^3/uL (0-0.2) Nucleated Red Blood Cells 0.2 % Sodium Level 142 mmol/L (136-145) Potassium Level 4.1 mmol/L (3.5-5.1) Chloride Level 110 mmol/L (98-107) Carbon Dioxide Level 23 mmol/L (20-31) Anion Gap 9 (5-15) Blood Urea Nitrogen 16 mg/dL (9-23) Creatinine 0.80 mg/dL (0.700-1.30) Glomerular Filtration Rate Calc 96 mL/min (>90) BUN/Creatinine Ratio 20.0 (10.0-20.0) Serum Glucose 93 mg/dL (74-106) Hemoglobin A1c 5.1 % A1C (<5.7) Calcium Level 9.0 mg/dL (8.7-10.4) Total Bilirubin 0.2 mg/dL (0.2-1.0) Aspartate Amino Transferase (AST) 34 U/L (<34) Alanine Aminotransferase (ALT) 46 U/L (7-40) Alkaline Phosphatase 55 U/L (46-116) B-Type Natriuretic Peptide 10.39 pg/mL (0-100) Total Protein 7.3 g/dL (5.7-8.2) Albumin 4.4 g/dL (3.2-4.8) Thyroid Stimulating Hormone (TSH) 1.89 uIU/mL (0.55-4.78) Other Laboratory Tests 02/23/25 02:31 Brief Hx & Hospital Course: 69-year-old male with known history of anxiety disorder presents to the hospital with episode of syncope. He had a fall and hit his head. Found to have syncope ruled out cardiac arrhythmia. Patient also had dizziness and blurry vision. Patient was ruled out for orthostatic hypotension. Patient was ruled out for any structural heart disease. Patient does have anxiety disorder which is currently compensated. Patient was started on Xanax which will be prescribed. Patient was recommended to follow up with the PCP in 1-2 weeks. Patient was also seen by Neurology and ruled out for any seizures. Patient is being discharged under stable condition. Condition at Discharge: Stable Final Diagnosis/Problems List 69-year-old male with known history of anxiety disorder presents to the hospital with episode of syncope. He had a fall and due to his head. Found to have 1. Syncope ruled out cardiac arrhythmia 2. Dizziness with blurry vision beta episodes of flashes of light ruled out seizure disorder 3. Ruled out orthostatic hypotension 4. Ruled out structural heart disease 5. Anxiety disorder 6. Closed head injury Discharge Disposition: Home SNF Discharge Will this Physician continue t: No Discharge Statement: "Patient was advised to return to the ER or call 911 if any headaches, dizziness, shortness of breath, chest pain, abdominal pain, bleeding, fevers, or worsening of medical condition. Patient was counseled about treatment plan, medications, possible side effects, patientverbalized understanding. All questions were answered to the best of my ability. This discharge took greater then 30 minutes in planning, reviewing documentation, counseling the patient, and discussing with other team members." ASSESSMENT ASSESSMENT Assessment Date of Service: Feb 24, 2025 Billing Provider: KJ FOSTER MD Common Visit Codes: NOT BILLABLE KJ FOSTER MD Feb 24, 2025 16:43
[2025-02-24] MEDS ORDERED: ALPR0.5T PO (16:45)
[2025-02-24] MEDS ORDERED: ATOR20TA50 PO (16:47)
[2025-02-24 17:00] VITALS: BP 144/95; PULSE 65; RESP 18; TEMP 98; O2SAT 98
[2025-02-24 17:34] VITALS: TEMP 36.7
--- NOTE | 2025-02-24 19:25 | DVHSR ---
APPROVED REPORT EXAM: Two-dimensional and M-mode echocardiogram with Doppler and color Doppler. Blood Pressure: 140/69 mmHg INDICATION Syncope RISK FACTORS Height: 5'10", Weight: 176 DIMENSIONS LVDd5.4 (3.8-5.7cm)LA (2D)4.2 (1.9-4.0cm)Aortic Root3.4 (2.0-3.7cm) LVDs3.9 (2.5-4.0cm)LA (MM) (1.9-4.0cm)Aortic Cusp Exc2.5 (1.5-2.0cm) EF (%) 54.0 (55-70%)Rt. Atrium4.5 (1.9-4.0cm)Asc. Aorta3.6 cm IVSd1.4 (0.7-1.1cm)RV (D)4.0 (1.8-2.4cm) PWd1.0 (0.7-1.1cm) Mitral Valve MitralMitral Stenosis E wave0.46m/sMV Mean GR.mmHg A wave0.58m/sMV Peak GR.mmHg E/A ratio0.82D MVAcm2 DECEL [id number] 1/2 [place] Aortic Valve Aortic ValveAortic Stenosis V10.99m/Angelo Mean GR.3mmHg V21.29m/Angelo Peak GR.7mmHg LVOT Diameter2.4 (1.8-2.4cm)Doppler AVA3.47cm2 Pulmonic Valve V21.24m/s Other Information Quality : Technically LimitedRhythm : Technically limited study due to body habitus. Conclusion LVEF 50-55%, mild lvh Mild left and right atrial dilation, mild RV dilation with normal function
== END 2025-02-24 19:03 | disposition home or self-care (01) | DRG 312 ==
LOC: ER 02:05 → EDBD 02:05 → OVERFLOW 04:45 → TELE-WESTW 16:55
PROVIDERS: ADMIT Internal Medicine; ATTEND Internal Medicine
DX: R55 Syncope and collapse (principal); E11.9 Type 2 diabetes mellitus without complications; F10.129 Alcohol abuse with intoxication, unspecified; M17.11 Unilateral primary osteoarthritis, right knee; I48.91 Unspecified atrial fibrillation; G89.4 Chronic pain syndrome; F41.9 Anxiety disorder, unspecified; E78.5 Hyperlipidemia, unspecified; I51.9 Heart disease, unspecified; Z96.653 Presence of artificial knee joint, bilateral; Z90.79 Acquired absence of other genital organ(s); Z85.46 Personal history of malignant neoplasm of prostate; Z83.3 Family history of diabetes mellitus; Z82.61 Family history of arthritis; Z84.1 Family history of disorders of kidney and ureter; Z82.49 Family history of ischemic heart disease and other diseases of the circulatory system; Y90.5 Blood alcohol level of 100-119 mg/100 ml; Z80.42 Family history of malignant neoplasm of prostate; W18.39XA Other fall on same level, initial encounter; Y93.55 Activity, bike riding; Y92.89 Other specified places as the place of occurrence of the external cause; Y99.8 Other external cause status
CPT/HCPCS: 36415; 70450; 71045; 80053; 80061; 80307; 80320; 83036; 83735; 83880; 84436; 84443; 84484; 85025; 85379; 93005; 93306; 93886; 96360; G0378